=== PATIENT | male | born 1960 | race African-American/Black ===

== ENCOUNTER 2016-12-02 14:15 | Inpatient (IN) | payer SELFPAY ==
[~2016-12-02] VITALS: Ht 167.6 cm; Wt 99.8 kg
[~2016-12-02 14:15] MED LIST: AMLO5TAB4 PO; ASPI-482 PO; CLON0.1T PO; DOXY100C14 PO; LISI-334 PO; LISI1TAB5 PO; LOVA20TA2 PO; TIZA4TAB PO; TRIA1CAP PO
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
[2016-12-02] MEDS ORDERED: LISINOPRIL 10 MG TABLET PO ONE (15:30)
[2016-12-02] MEDS ORDERED: AMLODIPINE BESYLATE 5 MG TABLET PO ONE (15:30)
[2016-12-02] MEDS ORDERED: DIPHTH,PERTUSS(ACELL),TET TOX 0.5 ML DISP.SYRIN. VAX IM ONE (15:30)
[2016-12-02] MEDS ORDERED: HYDROCODONE/APAP 5/325MG TABLET. PO ONE (15:30)
[2016-12-02] MEDS ORDERED: CEFAZOLIN 2GM PREMIX 50 ML IV ONE (15:45)
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
[2016-12-02] MEDS: FENTANYL PF 100 MCG/2 ML VIAL. IV PRN ×2 (16:28→22:53)
[2016-12-02] MEDS ORDERED: OXYCODONE/APAP 5/325 TABLET. PO PRN (16:30)
[2016-12-02] MEDS ORDERED: ACETAMINOPHEN 500 MG TABLET PO PRN (16:30)
[2016-12-02] MEDS ORDERED: hydrALAZINE 20 MG/ML VIAL. IVP PRN (16:30)
[2016-12-02] MEDS ORDERED: ONDANSETRON PF 4 MG/2 ML VIAL. IV PRN (16:30)
--- NOTE | 2016-12-02 16:31 | EKG ---
[facility] [address] [place] [id number] Test Date: 2016-12-02 Test Time: 16:29:39 Pat Name: MARIA E HERNANDEZ Department: Room: Gender: Male Progress Developer: : 1960 Requested By: JOCELYNN MAYO Order Number: [id number] Reading MD: Carlos Alberto Vick Measurements Intervals [place] Rate: 66 P: 41 MA: 156 QRS: -12 QRSD: 84 T: -2 QT: 360 QTc: 379 Interpretive Statements SINUS RHYTHM LEFTWARD AXIS T ABNORMALITY IN INFERIOR LEADS RI6.01 Unconfirmed report Compared to ECG 09/05/2015 14:32:28 Left-axis deviation now present T-wave abnormality now present Electronically Signed On 12-19-2016 9:46:23 POLICE SURGEON by Carlos Alberto Vick
[2016-12-02 16:34] LABS: BASO % 0 % (0-3); EOS % 0 % (0-3); HEMATOCRIT 41.6 % (39.0-53.0); HEMOGLOBIN 13.6 g/dL (13.0-17.5); LYMPH # 0.7 x10^3/uL (1.0-4.8); LYMPH % 9 % (24-48); MEAN CORPUSCULAR HEMOGLOBIN 26 pg (25-35); MEAN CORPUSCULAR HGB CONC 33 g/dL (31-37); MEAN CORPUSCULAR VOLUME 80 fL (79-100); MONO % 6 % (0-9); NEUT % 85 % (31-73); PLATELET COUNT 238 x10^3/uL (140-400); RED BLOOD COUNT 5.21 x10^6/uL (4.30-5.70); RED CELL DISTRIBUTION WIDTH 15.3 % (11.5-14.5); WHITE BLOOD COUNT 7.6 x10^3/uL (4.0-11.0)
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
[2016-12-02 17:06] LABS: CALCIUM 9.4 mg/dL (8.5-10.1); CREATININE 1.3 mg/dL (0.7-1.3); GFR 69.3; POTASSIUM 3.6 mmol/L (3.5-5.1)
[2016-12-02 17:08] LABS: ALBUMIN 3.4 g/dL (3.4-5.0); ALBUMIN/GLOBULIN RATIO 0.8 (1.0-1.7); TOTAL BILIRUBIN 0.2 mg/dL (0.2-1.0); TOTAL PROTEIN 7.5 g/dL (6.4-8.2)
--- NOTE | 2016-12-02 17:36 | ACF ---
Admission Forms Criteria MUSCULOSKELETAL DISEASE GRG Clinical Indications for Admission to Inpatient Care (Place 'X' for any and all applicable criteria): Hospital admission is needed for appropriate care of the patient because of ANY ONE of the following: [X]I. Fracture, dislocation, or other musculoskeletal injury requiring inpatient care(medical) as indicated by ANY ONE of the following(4)(5)(6)(7) [ ]a) Vertebral fracture requiring observation for instability or neurologic compromise (8) [ ]b) Compartment syndrome (proven or cannot be ruled out during observation level of care) (9) [ ]c) Limb-threatening injury [X]d) Major injury requiring inpatient stabilization such as traction initiation or external fixation before internal fixation or closure of complex or open fracture [ ]e) Major injury requiring inpatient treatment after emergency or observation level care (as appropriate) [ ]f) Severe pain requiring acute inpatient management [ ]II. Newly diagnosed or suspected bone, joint, or orthopedic device infection (e.g., osteomyelitis, septic arthritis) needing ANY ONE of the following(1)(2)(3) [ ]a) IV antibiotics that cannot be initiated in other than inpatient setting (e.g., patient too unstable or home infusion not available) [ ]b) Device removal or replacement [ ]c) Bone or soft tissue debridement [ ]d) Joint drainage (drain placement or repetitive aspirations) [ ]III. Severe rheumatologic disease (e.g., systemic lupus erythematosus, rheumatoid arthritis) with complications or comorbidities (Also use Optimal Recovery Care Criteria or General Recovery Criteria as appropriate on the basis of predominant condition), including ANY ONE of the following(10 )(11)(12)(13) [ ]a) Severe infection (e.g., FLOORWORKER infection, sepsis) (14) [ ]b) Respiratory complications, including ANY ONE of the following: [ ]i) Pleural effusion with respiratory compromise [ ]ii) Pulmonary hypertension with congestive failure [ ]iii) Respiratory failure [ ]iv) Pulmonary hemorrhage (15) [ ]c) Hematologic disease, including ANY ONE of the following: [ ]i) Coagulopathy with bleeding [ ]ii) Thrombosis with hypercoagulable state [ ]iii) Thrombotic thrombocytopenic purpura [ ]d) Cerebritis with seizures, psychosis, or other severe abnormalities [ ]e) Vertebral destruction with monitoring needed for cervical myelopathy& possible respiratory compromise [ ]f) Exacerbation that requires inpatient treatment (e.g., intravenous immunosuppression) (16) [ ]g) Acute renal failure [ ]IV. Severe vasculitis with complications or comorbidities (Also use Optimal Recovery Care Criteria or General Recovery Criteria as appropriate on the basis of predominant condition), including ANY ONE of the following(11)(12)(17)(18)(19)(20) [ ]a) FLOORWORKER vasculitis with seizures, psychosis, or other severe abnormalities (22) [ ]b) Renal failure (16) [ ]c) Pulmonary hemorrhage (15) [ ]d) Cerebral infarction [ ]e) Gastrointestinal ischemia [ ]f) Gangrene or threatened amputation [ ]g) Exacerbation that requires inpatient treatment (e.g., intravenous immunosuppression) (19)(21) [ ]V. Severe myopathy as indicated by ANY ONE of the following (28)(29) [ ]a) New onset of airway compromise or inability to swallow [ ]b) Respiratory deterioration with observation needed for impending respiratory failure [ ]c) Exacerbation that requires inpatient treatment (e.g., intravenous immunosuppression) [ ]. Severe gout (crystal arthropathy) as indicated by ANY ONE of the following (23)(24) [ ]a) Severe pain requiring acute inpatient management [ ]b) Exacerbation that requires inpatient treatment (e.g., intravenous treatment) [ ]VII.Rhabdomyolysis and ANY ONE of the following (25)(26)(27) [ ]a) Acute renal failure [ ]b) Need for intravenous hydration after emergency or observation level care (as appropriate) [ ]c) Inability to maintain oral hydration [ ]d) Change in mental status [ ]e) Electrolyte abnormality that remains after emergency or observation level care (as appropriate) [ ]VIII Post amputation complication, as indicated by ANY ONE of the following [ ]a) Infection [ ]b) Dehiscence [ ]c) Myodesis failure [ ]IX. Severe pain requiring acute inpatient management as indicated by ALL of the following (30)(31)(32) [ ]a) Continuous or frequent (e.g., every 2 to 4 hrs) parenteral analgesics required [A] [ ]b) Rapid improvement expected from treatment or acute intervention ( e.g., surgery, anesthesia procedure[B] [ ]X. Musculoskeletal Disease and ALL of the following: [ ]a) Symptom or finding for which emergency and observation care have failed or are not considered appropriate (Use General Criteria: Observation Care as appropriate) [ ]b) Presence of ANY ONE of the following [ ]i) A General Admission Criteria [ ]ii) A Pediatric General Admission Criteria The original [facility] content created by [facility] has been revised. The portions of the content which have been revised are identified through the use of italic text or in bold, and [facility] has neither reviewed nor approved the modified material. All other unmodified content is copyright [facility]. Please see references footnoted in the original [facility] edition 2016 Admission Criteria Met?: Yes CLAUS DAO Dec 02, 2016 17:36
[2016-12-02] MEDS: OXYCODONE/APAP 10/325 TABLET. PO PRN (17:51)
[2016-12-02] MEDS: MORPHINE SULFATE 4 MG/ML DISP.SYRIN. IV PRN ×2 (18:30→21:04)
[2016-12-02 19:00] VITALS: BP 183/102
[2016-12-02 19:01] LABS: BILIRUBIN,URINE NEGATIVE (NEG); GLUCOSE,URINE 100 mg/dL (NEG); NITRITE,URINE NEGATIVE (NEG); PH,URINE 7.5; PROTEIN,URINE NEGATIVE (NEG-TRACE); UROBILINOGEN,URINE 0.2 mg/dL (0.2 mg/dL)
[2016-12-02] MEDS: LABETALOL 20 MG/4 ML DISP.SYRIN. IVP PRN ×2 (19:28→22:57)
[2016-12-02 19:39] LABS: BACTERIA,URINE 0 /HPF (0-FEW); RBC,URINE OCC /HPF (0-2); SQUAMOUS EPITHELIAL CELL,UR FEW /LPF; WBC,URINE 0 /HPF (0-4)
[2016-12-02] MEDS: ATORVASTATIN CALCIUM 10 MG TABLET. PO SCH (20:57)
[2016-12-02] MEDS: CLONIDINE HCL 0.1 MG TABLET PO SCH (20:57)
[2016-12-02 23:00] VITALS: BP 185/91
[2016-12-03] VITALS (13 sets, daily range): BP systolic 126–196; BP diastolic 41–111
[2016-12-03] MEDS: OXYCODONE/APAP 10/325 TABLET. PO PRN (00:07)
[2016-12-03] MEDS: MORPHINE SULFATE 4 MG/ML DISP.SYRIN. IV PRN ×5 (00:07→09:52)
[2016-12-03] MEDS: FENTANYL PF 100 MCG/2 ML VIAL. IV PRN ×2 (04:14→07:11)
[2016-12-03] MEDS: CLONIDINE HCL 0.1 MG TABLET PO SCH ×2 (08:45→21:29)
[2016-12-03] MEDS: TRIAMTERENE/HCTZ 37.5/25MG TABLET. PO SCH (08:45)
[2016-12-03] MEDS: AMLODIPINE BESYLATE 5 MG TABLET PO SCH (08:46)
[2016-12-03] MEDS: NICOTINE 21MG PATCH. TD SCH (08:46)
[2016-12-03] MEDS: LISINOPRIL 20 MG TABLET PO SCH (08:47)
[2016-12-03] MEDS ORDERED: FLU VACC QUAD 2016-17 (36MOS+)/PF 0.5 ML SYRINGE. VAX IM ONE (11:00)
[2016-12-03] MEDS ORDERED: INFLUENZA VAX SCREEN BY RX. MC PRN (11:15)
[2016-12-03] MEDS ORDERED: FENTANYL PF 100 MCG/2 ML VIAL. ONE (12:39)
[2016-12-03] MEDS ORDERED: DEXAMETHASONE SOD PHOS 20 MG/5 ML VIAL. ONE (12:39)
[2016-12-03] MEDS ORDERED: ONDANSETRON PF 4 MG/2 ML VIAL. ONE (12:39)
[2016-12-03] MEDS ORDERED: PROPOFOL 20 ML IV ONE (12:39)
[2016-12-03] MEDS ORDERED: MIDAZOLAM HCL 2 MG/2 ML VIAL. ONE (12:39)
[2016-12-03] MEDS ORDERED: FAMOTIDINE 20 MG/2 ML VIAL ONE ×2 (12:39→13:52)
[2016-12-03] MEDS ORDERED: BUPIVACAINE-EPI 0.25%-1:200000 50 ML VIAL. ONE (12:40)
[2016-12-03] MEDS ORDERED: CEFAZOLIN 2GM PREMIX 50 ML IV ONE (12:53)
[2016-12-03] MEDS ORDERED: CEFAZOLIN 2GM PREMIX 50 ML IV SCH (13:00)
[2016-12-03] MEDS ORDERED: IV RINGERS,LACTATED 1000ML 1,000 ML IV SCH ×2 (13:00→14:12)
[2016-12-03] MEDS ORDERED: ROCURONIUM 50 MG/5 ML VIAL. ONE (13:17)
[2016-12-03] MEDS ORDERED: EPHEDRINE PF IN SALINE 50 MG/5 ML DISP.SYRIN. IV ONE (13:37)
[2016-12-03] MEDS ORDERED: GLYCOPYRROLATE 1 MG/5 ML VIAL. ONE (13:52)
[2016-12-03] MEDS ORDERED: NEOSTIGMINE METHYLSULFATE 5 MG/5 ML SYRINGE. ONE (13:52)
[2016-12-03] MEDS ORDERED: HYDROMORPHONE 2 MG/ML VIAL. IV PRN (14:15)
[2016-12-03] MEDS ORDERED: FENTANYL PF 100 MCG/2 ML VIAL. IV PRN ×4 (14:15→14:45)
[2016-12-03] MEDS ORDERED: MORPHINE SULFATE 4 MG/ML DISP.SYRIN. IV PRN ×2 (14:15→14:45)
[2016-12-03] MEDS ORDERED: MIDAZOLAM HCL 2 MG/2 ML VIAL. IV PRN ×2 (14:15)
[2016-12-03] MEDS ORDERED: PROCHLORPERAZINE 10 MG/2 ML VIAL. IV PRN (14:15)
[2016-12-03] MEDS ORDERED: DIPHENHYDRAMINE 50 MG/ML VIAL IV PRN (14:15)
[2016-12-03] MEDS ORDERED: LIDOCAINE 1% 1 ML SYRINGE. ID PRN (14:15)
[2016-12-03] MEDS ORDERED: MEPERIDINE PF 25 MG/ML VIAL. IV PRN (14:15)
[2016-12-03] MEDS ORDERED: SEVOFLURANE 31 TO 60 MINUTES. IH ONE (14:17)
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
[2016-12-03] MEDS ORDERED: DEXTROSE 50% 25 GM / 50ML DISP.SYRIN. IV PRN (14:45)
[2016-12-03] MEDS ORDERED: HYDROCODONE/APAP 7.5/325MG TABLET. PO PRN (14:45)
[2016-12-03] MEDS ORDERED: OXYCODONE/APAP 5/325 TABLET. PO PRN (14:45)
[2016-12-03] MEDS ORDERED: ONDANSETRON PF 4 MG/2 ML VIAL. IV PRN (14:45)
[2016-12-03] MEDS ORDERED: MORPHINE SULFATE 2 MG/ML DISP.SYRIN. IV PRN (14:45)
[2016-12-03] MEDS ORDERED: OXYCODONE IR 5 MG TABLET. PO PRN (14:45)
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
[2016-12-03] MEDS: IV 1/2 NORMAL SALINE 1,000 ML IV SCH (16:18)
[2016-12-03] MEDS: CHOLECALCIFEROL (VITAMIN D3) 1,000 UNIT TABLET PO SCH (16:18)
[2016-12-03] MEDS: SENNOSIDES/DOCUSATE 8.6/50MG TABLET. PO SCH (16:18)
[2016-12-03] MEDS: CEFAZOLIN 2GM PREMIX 50 ML IV SCH (18:25)
[2016-12-03] MEDS: KETOROLAC TROMETHAMINE 30 MG/ML SYRINGE. IV SCH ×2 (18:26→23:57)
[2016-12-03] MEDS: ATORVASTATIN CALCIUM 10 MG TABLET. PO SCH (21:29)
[2016-12-04] MEDS: CEFAZOLIN 2GM PREMIX 50 ML IV SCH ×2 (01:26→06:53)
[2016-12-04] MEDS: OXYCODONE/APAP 10/325 TABLET. PO PRN (01:31)
[2016-12-04 03:53] VITALS: BP 167/91
[2016-12-04] MEDS: IV 1/2 NORMAL SALINE 1,000 ML IV SCH (04:03)
[2016-12-04] MEDS: KETOROLAC TROMETHAMINE 30 MG/ML SYRINGE. IV SCH (05:27)
[2016-12-04] MEDS ORDERED: MAGNESIUM HYDROXIDE 2,400 MG/30 ML ORAL.SUSP. PO PRN (06:00)
[2016-12-04 06:47] LABS: BASO % 0 % (0-3); EOS % 0 % (0-3); HEMATOCRIT 36.2 % (39.0-53.0); LYMPH % 15 % (24-48); MEAN CORPUSCULAR HEMOGLOBIN 26 pg (25-35); MEAN CORPUSCULAR HGB CONC 33 g/dL (31-37); MEAN CORPUSCULAR VOLUME 79 fL (79-100); MONO % 10 % (0-9); NEUT % 75 % (31-73); PLATELET COUNT 241 x10^3/uL (140-400); RED BLOOD COUNT 4.57 x10^6/uL (4.30-5.70); RED CELL DISTRIBUTION WIDTH 15.1 % (11.5-14.5); WHITE BLOOD COUNT 7.2 x10^3/uL (4.0-11.0)
[2016-12-04] MEDS: HYDROCODONE/APAP 7.5/325MG TABLET. PO PRN ×4 (06:58→21:20)
[2016-12-04 07:00] VITALS: BP 138/82
[2016-12-04 07:05] LABS: CREATININE 1.3 mg/dL (0.7-1.3); GFR 69.3; POTASSIUM 3.6 mmol/L (3.5-5.1)
[2016-12-04] MEDS: NICOTINE 21MG PATCH. TD SCH (08:34)
[2016-12-04] MEDS: TRIAMTERENE/HCTZ 37.5/25MG TABLET. PO SCH (08:34)
[2016-12-04] MEDS: LISINOPRIL 20 MG TABLET PO SCH (08:35)
[2016-12-04] MEDS: SENNOSIDES/DOCUSATE 8.6/50MG TABLET. PO SCH (08:35)
[2016-12-04] MEDS: ASPIRIN 325 MG TABLET PO SCH (08:35)
[2016-12-04] MEDS: CLONIDINE HCL 0.1 MG TABLET PO SCH ×2 (08:36→20:05)
[2016-12-04] MEDS: AMLODIPINE BESYLATE 5 MG TABLET PO SCH (08:36)
[2016-12-04] MEDS: MULTIVITAMIN with MINERAL TABLET. PO SCH (08:41)
[2016-12-04] MEDS: CHOLECALCIFEROL (VITAMIN D3) 1,000 UNIT TABLET PO SCH (08:41)
[2016-12-04] MEDS ORDERED: INFLUENZA VAX SCREEN BY RX. MC ONE (09:00)
[2016-12-04 11:00] VITALS: BP 140/67
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
[2016-12-04 15:00] VITALS: BP 153/73
[2016-12-04] MEDS ORDERED: BISACODYL 10 MG SUPP.RECT PR PRN (16:00)
[2016-12-04] MEDS: POLYETHYLENE GLYCOL 3350 17 GM PACKET. PO PRN (17:16)
[2016-12-04 19:20] VITALS: BP 129/73
[2016-12-04] MEDS: ATORVASTATIN CALCIUM 10 MG TABLET. PO SCH (20:05)
[2016-12-04] MEDS: DIPHENHYDRAMINE 50 MG/ML VIAL IVP PRN (21:20)
[2016-12-04 23:16] VITALS: BP 124/82
[2016-12-05] MEDS: HYDROCODONE/APAP 7.5/325MG TABLET. PO PRN ×2 (02:35→07:04)
[2016-12-05 03:31] VITALS: BP 139/64
[2016-12-05 06:47] LABS: BASO % 0 % (0-3); EOS % 1 % (0-3); HEMATOCRIT 38.8 % (39.0-53.0); HEMOGLOBIN 12.7 g/dL (13.0-17.5); LYMPH % 25 % (24-48); MEAN CORPUSCULAR HEMOGLOBIN 26 pg (25-35); MEAN CORPUSCULAR HGB CONC 33 g/dL (31-37); MEAN CORPUSCULAR VOLUME 80 fL (79-100); MONO % 10 % (0-9); NEUT % 64 % (31-73); PLATELET COUNT 314 x10^3/uL (140-400); RED BLOOD COUNT 4.85 x10^6/uL (4.30-5.70); WHITE BLOOD COUNT 8.2 x10^3/uL (4.0-11.0)
[2016-12-05 06:56] LABS: CALCIUM 9.5 mg/dL (8.5-10.1); CREATININE 1.3 mg/dL (0.7-1.3); GFR 69.3; POTASSIUM 3.3 mmol/L (3.5-5.1)
[2016-12-05 07:00] VITALS: BP 159/81
[2016-12-05] MEDS: SENNOSIDES/DOCUSATE 8.6/50MG TABLET. PO SCH (08:53)
[2016-12-05] MEDS: AMLODIPINE BESYLATE 5 MG TABLET PO SCH (08:53)
[2016-12-05] MEDS: ASPIRIN 325 MG TABLET PO SCH (08:54)
[2016-12-05] MEDS: LISINOPRIL 20 MG TABLET PO SCH (08:54)
[2016-12-05] MEDS: CLONIDINE HCL 0.1 MG TABLET PO SCH (08:54)
[2016-12-05] MEDS: MULTIVITAMIN with MINERAL TABLET. PO SCH (08:54)
[2016-12-05] MEDS: TRIAMTERENE/HCTZ 37.5/25MG TABLET. PO SCH (08:54)
[2016-12-05] MEDS: CHOLECALCIFEROL (VITAMIN D3) 1,000 UNIT TABLET PO SCH (08:58)
[2016-12-05] MEDS: NICOTINE 21MG PATCH. TD SCH (08:58)
[2016-12-05] MEDS: DIPHENHYDRAMINE 50 MG/ML VIAL IVP PRN (08:59)
[2016-12-05] MEDS: POLYETHYLENE GLYCOL 3350 17 GM PACKET. PO PRN (08:59)
[2016-12-05 11:00] VITALS: BP 131/72
[2016-12-05] MEDS ORDERED: OXYCODONE/APAP 5/325 TABLET. PO PRN ×2 (11:15)
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
[2016-12-05] MEDS ORDERED: POTASSIUM CHLORIDE 20 MEQ TABLET.ER. PO ONE (11:30)
[2016-12-05] MEDS ORDERED: AMLO5TAB4 PO (11:35)
[2016-12-05] MEDS ORDERED: LISI-334 PO (11:35)
[2016-12-05] MEDS ORDERED: LOVA20TA2 PO (11:35)
[2016-12-05] MEDS ORDERED: TRIA1CAP PO (11:35)
[2016-12-05] MEDS ORDERED: CLON0.1T PO (11:35)
[2016-12-05] MEDS ORDERED: ASPI325T4 PO (11:36)
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
== END 2016-12-05 12:30 | disposition home or self-care (01) | DRG 504 ==
LOC: ER 14:15 → ED HOLD 15:43 → 4 NORTH 18:50
PROVIDERS: ADMIT Internal Medicine; ATTEND Internal Medicine
PROC: 0QBN0ZZ Excision of Right Metatarsal, Open Approach (ICD-10-PCS; 2016-12-03)
PROC: 0QSN04Z Reposition Right Metatarsal with Internal Fixation Device, Open Approach (ICD-10-PCS; 2016-12-03)
PROC: 0SSM04Z Reposition Right Metatarsal-Phalangeal Joint with Internal Fixation Device, Open Approach (ICD-10-PCS; 2016-12-03)
PROC: 0QSN35Z Reposition Right Metatarsal with External Fixation Device, Percutaneous Approach (ICD-10-PCS; 2016-12-03)
PROC: 0SS Lower Joints, Reposition (ICD-10-PCS; principal; 2016-12-03 13:15)
DX: S92.331B Displaced fracture of third metatarsal bone, right foot, initial encounter for open fracture (principal); I16.1 Hypertensive emergency; S93.129A Dislocation of metatarsophalangeal joint of unspecified toe(s), initial encounter; S92.341B Displaced fracture of fourth metatarsal bone, right foot, initial encounter for open fracture; F17.200 Nicotine dependence, unspecified, uncomplicated; I10 Essential (primary) hypertension; Z82.49 Family history of ischemic heart disease and other diseases of the circulatory system; Z91.19 Patient's noncompliance with other medical treatment and regimen; V29.9XXA Motorcycle rider (driver) (passenger) injured in unspecified traffic accident, initial encounter; Y93.I9 Activity, other involving external motion; Y92.89 Other specified places as the place of occurrence of the external cause; Y99.8 Other external cause status
CPT/HCPCS: 29515; 36415; 73590; 73630; 76000; 80048; 80053; 81001; 85027; 90471; 90715; 93005; 96365; 96375; J0360; J0690; J1100; J1200; J1885; J2250; J2270; J2405; J2704; J2710; J3010; J3490; J7120; S0028; 97116; 97530; 99285-25

== ENCOUNTER 2016-12-06 12:42 | Emergency (ER) | payer SELFPAY ==
[~2016-12-06] VITALS: Ht 167.6 cm; Wt 102.1 kg
[~2016-12-06 12:42] MED LIST changes: +ASPI325T4 PO
[2016-12-06 13:08] VITALS: BP 145/109
[2016-12-06] MEDS ORDERED: HYDROCODONE/APAP 5/325MG TABLET. PO ONE (14:30)
--- NOTE | 2016-12-06 14:53 | PHYS DOC ---
Past Medical History Past Medical History: High Cholesterol, Hypertension Past Surgical History: Other Additional Past Surgical Histo: R foot fx Alcohol Use: None Drug Use: None Adult General Chief Complaint Chief Complaint: POST-OP PROBLEM HPI HPI Patient is a 56 year old male who presents with for evaluation of leaking through his operative dressing on his right foot. He had open reduction of foot fracture with Dr. Diallo. He has been intermittently putting weight on his right foot. He has since had blood soaking his dressing. He has appropriate post op pain that is unchanged. He denies new injury. He denies fever or chills. Review of Systems Review of Systems Constitutional: Denies fever or chills [] Eyes: Denies change in visual acuity, redness, or eye pain [] HENT: Denies nasal congestion or sore throat [] Respiratory: Denies cough or shortness of breath [] Cardiovascular: No additional information not addressed in HPI [] GI: Denies abdominal pain, nausea, vomiting, bloody stools or diarrhea [] : Denies dysuria or hematuria [] Musculoskeletal: Denies back pain [] Integument: Denies rash or skin lesions [] Neurologic: Denies headache, focal weakness or sensory changes [] Endocrine: Denies polyuria or polydipsia [] Current Medications Current Medications Current Medications Medications (Trade) Dose Ordered Sig/Winston Start Time Stop Time Status Last Admin Dose Admin Acetaminophen/ Hydrocodone Bitart (Lortab 5/325) 2 tab 1X ONCE 12/06/16 14:30 12/06/16 14:34 DC 12/06/16 14:38 2 TAB Allergies Allergies Allergies Coded Allergies Type Severity Reaction Last Updated Verified No Known Drug Allergies 09/05/15 No Physical Exam Physical Exam Constitutional: Well developed, well nourished, no acute distress, non-toxic appearance. [] HENT: Normocephalic, atraumatic, bilateral external ears normal, oropharynx moist, nose normal. [] Eyes: PERRLA, EOMI. [] Neck: Normal range of motion, supple. [] Cardiovascular:Heart rate regular rhythm [] Lungs & Thorax: Bilateral breath sounds clear to auscultation [] Abdomen: Bowel sounds normal, soft, no tenderness. [] Skin: Warm, dry, no erythema, no rash. [] Back: Normal ROM. [] Extremities: RLE with surgical pins present to toes, ecchymosis to foot and ankle with fracture blisters around dorsum operative site, intact sutures to dorsum of foot with no bleeding or purulent discharge, small nonbleeding wound to plantar foot with no discharge, appropriate tenderness to foot, brisk cap refill to toes, can wiggle toes, sensation intact to light touch grossly Neurologic: Alert and oriented X 3, normal motor function, normal sensory function, no focal deficits noted. [] Psychologic: Affect normal, judgement normal, mood normal. [] Current Patient Data Vital Signs Vital Signs Date Time Temp Pulse Resp B/P Pulse Ox O2 Delivery O2 Flow Rate FiO2 12/06/16 14:38 Room Air 12/06/16 13:08 97.6 79 16 145/109 97 97.6 Course & Med Decision Making Course & Med Decision Making Dressing taking down with no active bleeding from operative site. No obvious purulent drainage or signs of infection. Dressing and splint was replaced with appropriate hardening of posterior slab. Case was discussed with Dr. Diallo, orthopedics, who recommends calling clinic for follow-up. Discussed nonweightbearing status. Return precautions given. Patient understands and agrees with plan. Dragon Disclaimer Dragon Disclaimer This electronic medical record was generated, in whole or in part, using a voice recognition dictation system. Departure Departure Impression: Primary Impression: Bleeding from wound Disposition: HOME, SELF-CARE Condition: STABLE Referrals: NO PCP (PCP) Patient Instructions: ORIF, Open Reduction, Internal Fixation, Generic Additional Instructions: Follow-up with orthopedics clinic. Continue to not walk on your foot. Return for any concerns. Bunny CONDE MD Dec 06, 2016 14:53
== END 2016-12-06 15:10 | disposition home or self-care (01) ==
LOC: ER 12:42
DX: L76.22 Postprocedural hemorrhage of skin and subcutaneous tissue following other procedure (principal); E78.00 Pure hypercholesterolemia, unspecified; I10 Essential (primary) hypertension; Z98.890 Other specified postprocedural states
CPT/HCPCS: 29515; 99283-25

== ENCOUNTER 2017-01-04 17:02 | Inpatient (IN) | payer SELFPAY ==
[~2017-01-04] VITALS: Ht 172.7 cm; Wt 80.8 kg
[2017-01-04] MEDS ORDERED: ONDANSETRON PF 4 MG/2 ML VIAL. IV ONE (17:45)
[2017-01-04] MEDS ORDERED: MORPHINE SULFATE 4 MG/ML DISP.SYRIN. IV/SQ PRN (17:45)
[2017-01-04 17:48] LABS: BASO # 0.1 x10^3/uL (0.0-0.2); BASO % 1 % (0-3); EOS % 2 % (0-3); HEMATOCRIT 38.4 % (39.0-53.0); HEMOGLOBIN 12.8 g/dL (13.0-17.5); LYMPH # 2.1 x10^3/uL (1.0-4.8); LYMPH % 20 % (24-48); MEAN CORPUSCULAR HEMOGLOBIN 27 pg (25-35); MEAN CORPUSCULAR HGB CONC 33 g/dL (31-37); MEAN CORPUSCULAR VOLUME 79 fL (79-100); MONO % 9 % (0-9); NEUT % 68 % (31-73); PLATELET COUNT 411 x10^3/uL (140-400); RED BLOOD COUNT 4.85 x10^6/uL (4.30-5.70); RED CELL DISTRIBUTION WIDTH 15.2 % (11.5-14.5); WHITE BLOOD COUNT 10.4 x10^3/uL (4.0-11.0)
[2017-01-04 17:56] LABS: CALCIUM 9.8 mg/dL (8.5-10.1); CREATININE 1.5 mg/dL (0.7-1.3); GFR 58.8; POTASSIUM 3.4 mmol/L (3.5-5.1)
[2017-01-04] MEDS ORDERED: CEFAZOLIN 2GM PREMIX 50 ML IV ONE (18:30)
[2017-01-04] MEDS ORDERED: ACETAMINOPHEN 325 MG TABLET. PO PRN (19:45)
[2017-01-04] MEDS ORDERED: ONDANSETRON PF 4 MG/2 ML VIAL. IV PRN (19:45)
[2017-01-04 20:15] VITALS: BP 164/102
--- NOTE | 2017-01-04 20:15 | ED.ADGEN ---
Past Medical History Past Medical History: High Cholesterol, Hypertension Past Surgical History: Other Additional Past Surgical Histo: R foot fx Alcohol Use: None Drug Use: None Adult General Chief Complaint Chief Complaint: FOOT INJURY PAIN HPI HPI Patient is a 56 year old man, history of hypertension, hypercholesterolemia, status post open reduction internal fixation of a foot fracture that occurred December 02, with metal fixation in place, who presents to the emergency department with complaint of pain, swelling and drainage from the surgical site that began 2 days ago. Patient states that he began noting increasing swelling yesterday and today especially, denies any new injuries, states that he is expressing increasing pain radiating up from his toes throughout his foot into his leg. Denies any fevers or chills, any nausea or vomiting, any weakness numbness or tingling. No chest pain shortness of breath or other complaints. Review of Systems Review of Systems Constitutional: Denies fever or chills. [] Eyes: Denies change in visual acuity. [] HENT: Denies nasal congestion or sore throat. [] Respiratory: Denies cough or shortness of breath. [] Cardiovascular: Denies chest pain or edema. [] GI: Denies abdominal pain, nausea, vomiting, bloody stools or diarrhea. [] : Denies dysuria. [] Musculoskeletal: Denies back pain, complaining of pain, swelling and drainage from his right foot, at incision site. Integument: Denies rash. [] Neurologic: Denies headache, focal weakness or sensory changes. [] Endocrine: Denies polyuria or polydipsia. [] Lymphatic: Denies swollen glands. [] Psychiatric: Denies depression or anxiety. [] Current Medications Current Medications Current Medications Medications (Trade) Dose Ordered Sig/Winston Start Time Stop Time Status Last Admin Dose Admin Morphine Sulfate 4 mg PRN Q15MIN PRN 01/04/17 17:45 01/05/17 17:44 01/04/17 17:46 4 MG Ondansetron HCl (Zofran) 4 mg 1X ONCE 01/04/17 17:45 01/04/17 17:46 DC 01/04/17 17:46 4 MG Allergies Allergies Allergies Coded Allergies Type Severity Reaction Last Updated Verified No Known Drug Allergies 09/05/15 No Physical Exam Physical Exam Constitutional: Well developed, well nourished, no acute distress, non-toxic appearance. [] HENT: Normocephalic, atraumatic, bilateral external ears normal, oropharynx moist, no oral exudates, nose normal. [] Eyes: PERRLA, EOMI, conjunctiva normal, no discharge. [] Neck: Normal range of motion, no tenderness, supple, no stridor. [] Cardiovascular:Heart rate regular rhythm, no murmur, S1, S2, rubs or gallops. [] Lungs & Thorax: Bilateral breath sounds clear to auscultation [, no wheezing, rhonchi, rales. No chest wall tenderness or crepitus.] Abdomen: Bowel sounds normal, soft, no tenderness, no masses, no pulsatile masses. [] Skin: Warm, dry, no erythema, no rash. [] Back: No tenderness, no CVA tenderness. [] Extremities: Patient with metal fixators extending from the third fourth and fifth toes of his right foot, evidence of scabbing, with some mild yellow red drainage from the dorsal aspect, patient with swelling from the toes to the mid foot, which she states is new, with mild erythema and warmth noted. Pulses are intact and equal bilaterally. Neurologic: Alert and oriented X 3, normal motor function, normal sensory function, no focal deficits noted. [] Psychologic: Affect normal, judgement normal, mood normal. [] Current Patient Data Vital Signs Vital Signs Date Time Temp Pulse Resp B/P Pulse Ox O2 Delivery O2 Flow Rate FiO2 01/04/17 17:46 16 97 Room Air 01/04/17 17:43 80 182/99 01/04/17 17:14 97.3 97.3 Lab Values Laboratory Tests Test 01/04/17 17:30 White Blood Count 10.4x10^3/uL (4.0-11.0) Red Blood Count 4.85x10^6/uL (4.30-5.70) Hemoglobin 12.8g/dL (13.0-17.5) L Hematocrit 38.4% (39.0-53.0) L Mean Corpuscular Volume 79fL (79-100) Mean Corpuscular Hemoglobin 27pg (25-35) Mean Corpuscular Hemoglobin Concent 33g/dL (31-37) Red Cell Distribution Width 15.2% (11.5-14.5) H Platelet Count 411x10^3/uL (140-400) H Neutrophils (%) (Auto) 68% (31-73) Lymphocytes (%) (Auto) 20% (24-48) L Monocytes (%) (Auto) 9% (0-9) Eosinophils (%) (Auto) 2% (0-3) Basophils (%) (Auto) 1% (0-3) Neutrophils # (Auto) 7.1x10^3uL (1.8-7.7) Lymphocytes # (Auto) 2.1x10^3/uL (1.0-4.8) Monocytes # (Auto) 1.0x10^3/uL (0.0-1.1) Eosinophils # (Auto) 0.2x10^3/uL (0.0-0.7) Basophils # (Auto) 0.1x10^3/uL (0.0-0.2) Sodium Level 138mmol/L (136-145) Potassium Level 3.4mmol/L (3.5-5.1) L Chloride Level 98mmol/L (98-107) Carbon Dioxide Level 28mmol/L (21-32) Anion Gap 12 (6-14) Blood Urea Nitrogen 9mg/dL (8-26) Creatinine 1.5mg/dL (0.7-1.3) H Estimated GFR (Cockcroft-Gault) 58.8 Glucose Level 113mg/dL (70-99) H Calcium Level 9.8mg/dL (8.5-10.1) Laboratory Tests 01/04/17 17:30 Laboratory Tests 01/04/17 17:30 EKG EKG ECG: Rhythm strip: Heart rate 80 bpm, sinus rhythm, no ectopy. As interpreted by me. [] Radiology/Procedures Radiology/Procedures Foot x-ray: Three-view: Patient with metal fixators in place, no acute fracture , subluxation noted, soft tissue swelling noted. No fluid collection or gas. As interpreted by me. Course & Med Decision Making Course & Med Decision Making Pertinent Labs and Imaging studies reviewed. (See chart for details) Patient's examination concerning for infection of his postsurgical foot. Patient is afebrile, vital signs are within normal limits. X-ray obtained did not reveal any evidence of acutely concerning finds, laboratory studies also unremarkable. Patient received pain medication, findings as above discussed with Dr. Harris the patient's orthopedist, the patient be admitted to the hospital initiated on Ancef. Blood and wound cultures pending. Findings as above discussed with Dr. roberts of internal medicine, patient accepted to his service as a full admission to the medical surgical floor, orthopedics consultation, antibiotics, pain medication, supportive measures as stated. Bridge orders entered per discussion. Patient remained stable and comfortable in the ED, transferred to the floor without issue. Dragon Disclaimer Dragon Disclaimer This electronic medical record was generated, in whole or in part, using a voice recognition dictation system. Departure Impression: Primary Impression: Postoperative wound infection Disposition: ADMITTED INPATIENT Admitting Physician: Maya Roberts Condition: IMPROVED VIJAY FRAGOSO DO Jan 04, 2017 20:15
[2017-01-04] MEDS: MORPHINE SULFATE 4 MG/ML DISP.SYRIN. IV PRN ×2 (20:44→23:24)
[2017-01-04] MEDS ORDERED: POTASSIUM CHLORIDE 20 MEQ TABLET.ER. PO ONE (21:15)
--- NOTE | 2017-01-04 21:59 | PDOC1 ---
History and Physical Date of Admission Date of Admission DATE: 01/04/17 TIME: 21:55 History of Present Illness History of Present Illness Mr. Eagle, is a 56 year old man, admit from ER with worsening swelling, redness and new discharge from right dorsum of foot. He is status post open reduction internal fixation of a foot fracture that occurred December 02, with metal fixation in place to phalanges of right foot., He has been unable to sleep due to due pain, Pain was 8/10 better with meds Also swelling and drainage from the surgical site that began 2 days ago, and he thinks is better now. Past Medical History Past Medical History history of hypertension, hypercholesterolemia, Cardiovascular: HTN Pulmonary: No pertinent hx CENTRAL NERVOUS SYSTEM: Other GI: No pertinent hx Heme/Onc: No pertinent hx Hepatobiliary: No pertinent hx Psych: No pertinent hx Musculoskeletal: Other Infectious disease: No pertinent hx Renal/: No pertinent hx Endocrine: No pertinent hx Past Surgical History Past Surgical History: No pertinent history Family History Family History: Coronary Artery Disease Social History Smoke: No ALCOHOL: occassional Drugs: None Current Problem List Problem List Problems Medical Problems: (1) Postoperative wound infection Status: Acute Problems: Current Medications Current Medications Current Medications Morphine Sulfate 4 mg PRN Q15MIN PRN IV/SQ PAIN GREATER THAN 3/10 Last administered on 01/04/17 17:46; Start 01/04/17 at 17:45; Stop 01/05/17 at 17:44 Ondansetron HCl 4 mg 4 mg 1X ONCE IV Last administered on 01/04/17 17:46; Start 01/04/17 at 17:45; Stop 01/04/17 at 17:46; Status DC Cefazolin Sodium/ Dextrose (Ancef 2gm Premix) 50 ml @ 100 mls/hr 1X ONCE IV Last administered on 01/04/17 18:42; Start 01/04/17 at 18:30; Stop 01/04/17 at 18:59; Status DC Ondansetron HCl (Zofran) 4 mg PRN Q8HRS PRN IV NAUSEA/VOMITING; Start 01/04/17 at 19:45; Stop 01/05/17 at 19:44 Morphine Sulfate 4 mg PRN Q2HR PRN IV PAIN Last administered on 01/04/17 20:44 ; Start 01/04/17 at 19:45; Stop 01/05/17 at 19:44 Acetaminophen (Tylenol) 650 mg PRN Q4HRS PRN PO FEVER; Start 01/04/17 at 19:45 ; Stop 01/05/17 at 19:44 Potassium Chloride (Klor-Con) 40 meq 1X ONCE PO ; Start 01/04/17 at 21:15; Stop 01/04/17 at 21:16; Status DC Active Scripts Active Aspirin 325 Mg Tablet 325 Mg PO [id number] Clonidine Hcl 0.1 Mg Tablet 0.1 Mg PO BID 30 Days Lisinopril 20 Mg Tablet 1 Tab PO DAILY Norvasc (Amlodipine Besylate) 5 Mg Tablet 1 Tab PO DAILY Lovastatin 20 Mg Tablet 1 Tab PO DAILY Dyazide 37.5-25 Capsule (Triamterene/Hydrochlorothiazid) 1 Each Capsule 1 Cap PO DAILY Allergies Allergies: Coded Allergies: No Known Drug Allergies (Unverified , 09/05/15) ROS General: No: Appetite, Chills, Fatigue, Malaise, Night Sweats, Other PSYCHOLOGICAL ROS: No: Anxiety, Behavioral Disorder, Concentration difficultie , Decreased libido, Depression, Disorientation, Hallucinations, Hostility, Irritablity, Memory difficulties, Mood Swings, Obsessive thoughts, Other, Physical abuse, Sexual abuse, Sleep disturbances, Suicidal ideation Eyes: No Blurry vision, No Decreased vision, No Double vision, No Dry eyes, No Excessive tearing, No Eye Pain, No Itchy Eyes, No Loss of vision, No Other, No Photophobia, No Scotomata, No Uses contacts, No Uses glasses HEENT: YES: Heacaches, No: Epistaxis, Hearing change, Nasal congestion, Nasal discharge, Oral lesions, Other, Sinus pain, Sneezing, Snoring, Sore Throat, Tinnitus, Vertigo, Visual Changes, Vocal changes Respiratory: No: Cough, Hemoptysis, Orthopnea, Other, Pleuritic Pain, SOB with excertion, Shortness of breath, Sputum Changes, Stridor, Tachypnea, Wheezing Cardiovascular: No Chest Pain, No Edema, No Lt Headedness, No Orthopnea, No Other, No Palpitations, No Paroxysmal Noc. Dyspnea Gastrointestinal: No Abdominal Pain, No Constipation, No Diarrhea, No Hematochezia, No Melena, No Nausea, No Other, No Vomiting Genitourinary: No , No , No , No , No , No , No , No Discharge, No Dysuria, No Flank Pain, No Frequency, No Hematuria, No Incontinence, No Other, No Pain, No Retention, No Urgency Musculoskeletal: Yes Gait Disturbance, Yes Joint Pain, Yes Joint Stiffness, Yes Pain In: (foot), No Joint Swelling, No Muscle Pain, No Muscular Weakness, No Other, No Swelling In: Neurological: No Behavorial Changes, No Bowel/Bladder ControlChng, No Confusion , No Dizziness, No Gait Disturbance, No Headaches, No Impaired Coord/balance, No Memory Loss, No Numbness/Tingling, No Other, No Seizures, No Speech Problems , No Tremors, No Visual Changes, No Weakness Skin: Yes Dry Skin, No Acne, No Eczema, No Hair Changes, No Lumps, No Mole Changes, No Mottling, No Nail Changes, No Other, No Pruritus, No Rash, No Skin Lesion Changes Physical Exam General: Alert, Oriented X3, Cooperative, No acute distress HEENT: Atraumatic, PERRLA, EOMI, Mucous membr. moist/pink Lungs: Clear to auscultation, Normal air movement Heart: no gallops, no murmurs Rectal Exam: not examined Extremities: No clubbing, No edema, Normal pulses Skin: Other (erythema with central wound, he reports improved in the past few hours,) Neuro: Normal speech, Normal tone, Sensation intact Psych/Mental Status: Mental status NL, Mood NL Vitals Vitals Vital Signs Date Time Temp Pulse Resp B/P Pulse Ox O2 Delivery O2 Flow Rate FiO2 01/04/17 20:44 16 Room Air 01/04/17 20:15 98.0 80 164/102 96 98.0 Labs Labs Laboratory Tests Test 01/04/17 17:30 White Blood Count 10.4x10^3/uL (4.0-11.0) Red Blood Count 4.85x10^6/uL (4.30-5.70) Hemoglobin 12.8g/dL (13.0-17.5) Hematocrit 38.4% (39.0-53.0) Mean Corpuscular Volume 79fL (79-100) Mean Corpuscular Hemoglobin 27pg (25-35) Mean Corpuscular Hemoglobin Concent 33g/dL (31-37) Red Cell Distribution Width 15.2% (11.5-14.5) Platelet Count 411x10^3/uL (140-400) Neutrophils (%) (Auto) 68% (31-73) Lymphocytes (%) (Auto) 20% (24-48) Monocytes (%) (Auto) 9% (0-9) Eosinophils (%) (Auto) 2% (0-3) Basophils (%) (Auto) 1% (0-3) Neutrophils # (Auto) 7.1x10^3uL (1.8-7.7) Lymphocytes # (Auto) 2.1x10^3/uL (1.0-4.8) Monocytes # (Auto) 1.0x10^3/uL (0.0-1.1) Eosinophils # (Auto) 0.2x10^3/uL (0.0-0.7) Basophils # (Auto) 0.1x10^3/uL (0.0-0.2) Sodium Level 138mmol/L (136-145) Potassium Level 3.4mmol/L (3.5-5.1) Chloride Level 98mmol/L (98-107) Carbon Dioxide Level 28mmol/L (21-32) Anion Gap 12 (6-14) Blood Urea Nitrogen 9mg/dL (8-26) Creatinine 1.5mg/dL (0.7-1.3) Estimated GFR (Cockcroft-Gault) 58.8 Glucose Level 113mg/dL (70-99) Calcium Level 9.8mg/dL (8.5-10.1) Laboratory Tests Test 01/04/17 17:30 White Blood Count 10.4x10^3/uL (4.0-11.0) Red Blood Count 4.85x10^6/uL (4.30-5.70) Hemoglobin 12.8g/dL (13.0-17.5) Hematocrit 38.4% (39.0-53.0) Mean Corpuscular Volume 79fL (79-100) Mean Corpuscular Hemoglobin 27pg (25-35) Mean Corpuscular Hemoglobin Concent 33g/dL (31-37) Red Cell Distribution Width 15.2% (11.5-14.5) Platelet Count 411x10^3/uL (140-400) Neutrophils (%) (Auto) 68% (31-73) Lymphocytes (%) (Auto) 20% (24-48) Monocytes (%) (Auto) 9% (0-9) Eosinophils (%) (Auto) 2% (0-3) Basophils (%) (Auto) 1% (0-3) Neutrophils # (Auto) 7.1x10^3uL (1.8-7.7) Lymphocytes # (Auto) 2.1x10^3/uL (1.0-4.8) Monocytes # (Auto) 1.0x10^3/uL (0.0-1.1) Eosinophils # (Auto) 0.2x10^3/uL (0.0-0.7) Basophils # (Auto) 0.1x10^3/uL (0.0-0.2) Sodium Level 138mmol/L (136-145) Potassium Level 3.4mmol/L (3.5-5.1) Chloride Level 98mmol/L (98-107) Carbon Dioxide Level 28mmol/L (21-32) Anion Gap 12 (6-14) Blood Urea Nitrogen 9mg/dL (8-26) Creatinine 1.5mg/dL (0.7-1.3) Estimated GFR (Cockcroft-Gault) 58.8 Glucose Level 113mg/dL (70-99) Calcium Level 9.8mg/dL (8.5-10.1) VTE Prophylaxis Ordered VTE Prophylaxis Devices: No VTE Pharmacological Prophylaxi: Yes Assessment/Plan Assessment/Plan right foot pain, erythema and drainage from foot recent forefoot fracture with implanted hardware by Dr. Imani Rodriguez given X1, will discuss w/ ortho if to continue pain, insomnia meds hypokalemia, replace CKD 2- 3, LOREN GREEN MD Jan 04, 2017 21:59
[2017-01-04] MEDS ORDERED: OXYCODONE/APAP 5/325 TABLET. PO PRN (23:00)
[2017-01-04] MEDS ORDERED: ZOLPIDEM 5 MG TABLET. PO PRN (23:00)
[2017-01-04 23:14] VITALS: BP 165/86
[2017-01-04] MEDS: MORPHINE ER 15 MG TABLET.ER PO SCH (23:22)
[2017-01-05] MEDS: MORPHINE SULFATE 4 MG/ML DISP.SYRIN. IV PRN ×2 (01:56→08:17)
[2017-01-05 03:06] VITALS: BP 162/99
[2017-01-05 04:43] LABS: BASO % 0 % (0-3); EOS % 3 % (0-3); HEMATOCRIT 36.3 % (39.0-53.0); HEMOGLOBIN 12.1 g/dL (13.0-17.5); LYMPH # 1.6 x10^3/uL (1.0-4.8); LYMPH % 19 % (24-48); MEAN CORPUSCULAR HEMOGLOBIN 26 pg (25-35); MEAN CORPUSCULAR HGB CONC 33 g/dL (31-37); MEAN CORPUSCULAR VOLUME 78 fL (79-100); MONO % 10 % (0-9); NEUT % 68 % (31-73); PLATELET COUNT 394 x10^3/uL (140-400); RED BLOOD COUNT 4.65 x10^6/uL (4.30-5.70); WHITE BLOOD COUNT 8.7 x10^3/uL (4.0-11.0)
[2017-01-05] MEDS ORDERED: HYDROMORPHONE 2 MG/ML VIAL. IV PRN (04:45)
[2017-01-05 04:53] LABS: ALBUMIN 2.9 g/dL (3.4-5.0); ALBUMIN/GLOBULIN RATIO 0.7 (1.0-1.7); CALCIUM 9.6 mg/dL (8.5-10.1); CREATININE 1.2 mg/dL (0.7-1.3); GFR 76.1; MAGNESIUM 2.1 mg/dL (1.8-2.4); POTASSIUM 3.4 mmol/L (3.5-5.1); TOTAL BILIRUBIN 0.2 mg/dL (0.2-1.0); TOTAL PROTEIN 7.2 g/dL (6.4-8.2)
[2017-01-05] MEDS: OXYCODONE/APAP 10/325 TABLET. PO PRN ×2 (04:55→11:01)
[2017-01-05] MEDS ORDERED: CEFAZOLIN SODIUM 1 GM in IV NORMAL SALINE 50ML 50 ML IV SCH (06:00)
[2017-01-05 07:00] VITALS: BP 172/79
--- NOTE | 2017-01-05 07:18 | ACF ---
Admission Forms Criteria WOUND COMPLICATIONS Clinical Indications for Inpatient Care (Place 'X' for any and all applicable criteria): Ongoing inpatient care may be indicated for wound complications with ANY ONE of the following (1) (15): [ ]I. Infection with ANY ONE of the following(32)(33): [ ]a) Temperature greater than 38.5 C (101.3 F) [ ]b) Evidence of tissue necrosis [ ]c) Erythema diameter expanding around wound despite treatment [ ]d) Mental status changes [ ]e) Dehydration [ ]f) Bacteremia [ ]g) Hemodynamic instability [ ]h) Suspected necrotizing fasciitis [ ]i) Rapidly spreading lesions [ ]j) High-risk location (eg, perineum, sternum, orbit) [ ]k) High-risk coexisting clinical condition as indicated by ANY ONE of the following: [ ]i) Poorly controlled diabetes [ ]ii) Cirrhosis [ ]iii) Renal failure [ ]iv) Neutropenia [ ] v) Asplenia [ ]vi) Immunosuppression (eg, AIDS, chronic corticosteroid use) [ ]viii) Other high-risk medical comorbidities [ ] II. Dehiscence requiring frequent monitoring or immediate treatment [ ] III. Hematoma with ANY ONE of the following: [ ]a) Hemodynamic instability or acute anemia due to rapid development of hematoma [ ]b) Neck hematoma causing airway compression [ ]c) Retroperitoneal hematoma [ ]d) Uncontrolled coagulopathy [ ]IV. Seroma with evidence of secondary infection and requirement for IV antibiotics [D](31) [X]V. Pain that cannot be managed at lower level of care Extended stay beyond goal length of stay for primary condition may be needed until ALL of the following are present(1)(33)(34): [ ]a) Afebrile or fever resolving [ ]b) Hemodynamic stability [ ]c) Pain resolving [ ]d) Wound closed, continuity adequately restored, or wound manageable at lower level of care [ ]e) No drain needed or drain care manageable at lower level of care [ ]f) Wound hematoma or seroma resolving [ ]g) Antibiotics not needed or regimen manageable at lower level of care(38) [ ]h) Dressing care manageable at lower level of care [ ]i) Coagulopathy absent, resolved, or treatable at lower level of care [ ]j) Medical comorbidities resolved or treatable at lower level of care The original [email or web address] content created by Lambert Brandon has been revised. The portions of the content which have been revised are identified through the use of italic text or in bold, and Lambert Brandon has neither reviewed nor approved the modified material. All other unmodified content is copyright Lambert Brandon. Please see references footnoted in the original [facility] edition 2016 Admission Criteria Met?: Yes AURORA KATE Jan 05, 2017 07:18
--- NOTE | 2017-01-05 08:14 | RAD ---
Right foot, 3 views, 06/06/2017: History: Foot pain and swelling, postop Comparison is made to a study from 12/02/2016. There are surgical pins now in place running through the phalanges of the second through fifth toes extending into the distal metatarsals. The previously seen dislocation at the second MTP joint has been reduced. The previously seen fracture dislocations at the third and fourth MTP levels have also been reduced. At the fifth MTP joint level there is a moderate sized metatarsal head fracture fragment which is not traversed by the surgical pin. There is a nondisplaced fracture of the proximal second metatarsal which is unchanged. The previously seen seen fracture of the inferolateral aspect of the third portion of the cuboid bone is less clearly defined on today's images but is unchanged in position. No new fracture or dislocation is identified. There is moderate diffuse soft tissue swelling about the foot. IMPRESSION: Multiple subacute foot fractures and postsurgical changes as described above.
[2017-01-05] MEDS ORDERED: POLYETHYLENE GLYCOL 3350 17 GM PACKET. PO SCH (09:00)
[2017-01-05] MEDS ORDERED: DOCUSATE SODIUM 100 MG CAPSULE PO SCH (09:00)
--- NOTE | 2017-01-05 09:39 | PDOC ---
PROGRESS NOTES Chief Complaint Chief Complaint right foot pain, erythema and drainage from foot recent forefoot fracture with implanted hardware pain, ongoing hypokalemia, CKD 2- vasomotor on admit, improved History of Present Illness History of Present Illness severe pain overnight, pain meds increased some insomnia Vitals Vitals Vital Signs Date Time Temp Pulse Resp B/P Pulse Ox O2 Delivery O2 Flow Rate FiO2 01/05/17 07:00 96.1 68 18 172/79 99 Room Air 96.1 Physical Exam General: Alert, Oriented X3, Cooperative, mild distress Heart: Regular rate, No murmurs Lungs: Clear Extremities: No clubbing, No edema, Normal pulses Skin: Other (erythema with central wound, he reports improved - but still very painful) Labs LABS Laboratory Tests Test 01/04/17 17:30 01/05/17 03:40 White Blood Count 10.4x10^3/uL (4.0-11.0) 8.7x10^3/uL (4.0-11.0) Red Blood Count 4.85x10^6/uL (4.30-5.70) 4.65x10^6/uL (4.30-5.70) Hemoglobin 12.8g/dL (13.0-17.5) 12.1g/dL (13.0-17.5) Hematocrit 38.4% (39.0-53.0) 36.3% (39.0-53.0) Mean Corpuscular Volume 79fL (79-100) 78fL (79-100) Mean Corpuscular Hemoglobin 27pg (25-35) 26pg (25-35) Mean Corpuscular Hemoglobin Concent 33g/dL (31-37) 33g/dL (31-37) Red Cell Distribution Width 15.2% (11.5-14.5) 15.0% (11.5-14.5) Platelet Count 411x10^3/uL (140-400) 394x10^3/uL (140-400) Neutrophils (%) (Auto) 68% (31-73) 68% (31-73) Lymphocytes (%) (Auto) 20% (24-48) 19% (24-48) Monocytes (%) (Auto) 9% (0-9) 10% (0-9) Eosinophils (%) (Auto) 2% (0-3) 3% (0-3) Basophils (%) (Auto) 1% (0-3) 0% (0-3) Neutrophils # (Auto) 7.1x10^3uL (1.8-7.7) 5.9x10^3uL (1.8-7.7) Lymphocytes # (Auto) 2.1x10^3/uL (1.0-4.8) 1.6x10^3/uL (1.0-4.8) Monocytes # (Auto) 1.0x10^3/uL (0.0-1.1) 0.9x10^3/uL (0.0-1.1) Eosinophils # (Auto) 0.2x10^3/uL (0.0-0.7) 0.2x10^3/uL (0.0-0.7) Basophils # (Auto) 0.1x10^3/uL (0.0-0.2) 0.0x10^3/uL (0.0-0.2) Sodium Level 138mmol/L (136-145) 139mmol/L (136-145) Potassium Level 3.4mmol/L (3.5-5.1) 3.4mmol/L (3.5-5.1) Chloride Level 98mmol/L (98-107) 99mmol/L (98-107) Carbon Dioxide Level 28mmol/L (21-32) 31mmol/L (21-32) Anion Gap 12 (6-14) 9 (6-14) Blood Urea Nitrogen 9mg/dL (8-26) 9mg/dL (8-26) Creatinine 1.5mg/dL (0.7-1.3) 1.2mg/dL (0.7-1.3) Estimated GFR (Cockcroft-Gault) 58.8 76.1 Glucose Level 113mg/dL (70-99) 98mg/dL (70-99) Calcium Level 9.8mg/dL (8.5-10.1) 9.6mg/dL (8.5-10.1) BUN/Creatinine Ratio 8 (6-20) Magnesium Level 2.1mg/dL (1.8-2.4) Total Bilirubin 0.2mg/dL (0.2-1.0) Aspartate Amino Transf (AST/SGOT) 11U/L (15-37) Alanine Aminotransferase (ALT/SGPT) 15U/L (16-63) Alkaline Phosphatase 93U/L (46-116) Total Protein 7.2g/dL (6.4-8.2) Albumin 2.9g/dL (3.4-5.0) Albumin/Globulin Ratio 0.7 (1.0-1.7) Assessment and Plan Assessmemt and Plan Problems Medical Problems: (1) Postoperative wound infection Status: Acute Problems: Comment Review of Relevant I have reviewed the following items rogerio (where applicable) has been applied. Labs Laboratory Tests Test 01/04/17 17:30 01/05/17 03:40 White Blood Count 10.4x10^3/uL (4.0-11.0) 8.7x10^3/uL (4.0-11.0) Red Blood Count 4.85x10^6/uL (4.30-5.70) 4.65x10^6/uL (4.30-5.70) Hemoglobin 12.8g/dL (13.0-17.5) 12.1g/dL (13.0-17.5) Hematocrit 38.4% (39.0-53.0) 36.3% (39.0-53.0) Mean Corpuscular Volume 79fL (79-100) 78fL (79-100) Mean Corpuscular Hemoglobin 27pg (25-35) 26pg (25-35) Mean Corpuscular Hemoglobin Concent 33g/dL (31-37) 33g/dL (31-37) Red Cell Distribution Width 15.2% (11.5-14.5) 15.0% (11.5-14.5) Platelet Count 411x10^3/uL (140-400) 394x10^3/uL (140-400) Neutrophils (%) (Auto) 68% (31-73) 68% (31-73) Lymphocytes (%) (Auto) 20% (24-48) 19% (24-48) Monocytes (%) (Auto) 9% (0-9) 10% (0-9) Eosinophils (%) (Auto) 2% (0-3) 3% (0-3) Basophils (%) (Auto) 1% (0-3) 0% (0-3) Neutrophils # (Auto) 7.1x10^3uL (1.8-7.7) 5.9x10^3uL (1.8-7.7) Lymphocytes # (Auto) 2.1x10^3/uL (1.0-4.8) 1.6x10^3/uL (1.0-4.8) Monocytes # (Auto) 1.0x10^3/uL (0.0-1.1) 0.9x10^3/uL (0.0-1.1) Eosinophils # (Auto) 0.2x10^3/uL (0.0-0.7) 0.2x10^3/uL (0.0-0.7) Basophils # (Auto) 0.1x10^3/uL (0.0-0.2) 0.0x10^3/uL (0.0-0.2) Sodium Level 138mmol/L (136-145) 139mmol/L (136-145) Potassium Level 3.4mmol/L (3.5-5.1) 3.4mmol/L (3.5-5.1) Chloride Level 98mmol/L (98-107) 99mmol/L (98-107) Carbon Dioxide Level 28mmol/L (21-32) 31mmol/L (21-32) Anion Gap 12 (6-14) 9 (6-14) Blood Urea Nitrogen 9mg/dL (8-26) 9mg/dL (8-26) Creatinine 1.5mg/dL (0.7-1.3) 1.2mg/dL (0.7-1.3) Estimated GFR (Cockcroft-Gault) 58.8 76.1 Glucose Level 113mg/dL (70-99) 98mg/dL (70-99) Calcium Level 9.8mg/dL (8.5-10.1) 9.6mg/dL (8.5-10.1) BUN/Creatinine Ratio 8 (6-20) Magnesium Level 2.1mg/dL (1.8-2.4) Total Bilirubin 0.2mg/dL (0.2-1.0) Aspartate Amino Transf (AST/SGOT) 11U/L (15-37) Alanine Aminotransferase (ALT/SGPT) 15U/L (16-63) Alkaline Phosphatase 93U/L (46-116) Total Protein 7.2g/dL (6.4-8.2) Albumin 2.9g/dL (3.4-5.0) Albumin/Globulin Ratio 0.7 (1.0-1.7) Laboratory Tests Test 01/04/17 17:30 01/05/17 03:40 White Blood Count 10.4x10^3/uL (4.0-11.0) 8.7x10^3/uL (4.0-11.0) Red Blood Count 4.85x10^6/uL (4.30-5.70) 4.65x10^6/uL (4.30-5.70) Hemoglobin 12.8g/dL (13.0-17.5) 12.1g/dL (13.0-17.5) Hematocrit 38.4% (39.0-53.0) 36.3% (39.0-53.0) Mean Corpuscular Volume 79fL (79-100) 78fL (79-100) Mean Corpuscular Hemoglobin 27pg (25-35) 26pg (25-35) Mean Corpuscular Hemoglobin Concent 33g/dL (31-37) 33g/dL (31-37) Red Cell Distribution Width 15.2% (11.5-14.5) 15.0% (11.5-14.5) Platelet Count 411x10^3/uL (140-400) 394x10^3/uL (140-400) Neutrophils (%) (Auto) 68% (31-73) 68% (31-73) Lymphocytes (%) (Auto) 20% (24-48) 19% (24-48) Monocytes (%) (Auto) 9% (0-9) 10% (0-9) Eosinophils (%) (Auto) 2% (0-3) 3% (0-3) Basophils (%) (Auto) 1% (0-3) 0% (0-3) Neutrophils # (Auto) 7.1x10^3uL (1.8-7.7) 5.9x10^3uL (1.8-7.7) Lymphocytes # (Auto) 2.1x10^3/uL (1.0-4.8) 1.6x10^3/uL (1.0-4.8) Monocytes # (Auto) 1.0x10^3/uL (0.0-1.1) 0.9x10^3/uL (0.0-1.1) Eosinophils # (Auto) 0.2x10^3/uL (0.0-0.7) 0.2x10^3/uL (0.0-0.7) Basophils # (Auto) 0.1x10^3/uL (0.0-0.2) 0.0x10^3/uL (0.0-0.2) Sodium Level 138mmol/L (136-145) 139mmol/L (136-145) Potassium Level 3.4mmol/L (3.5-5.1) 3.4mmol/L (3.5-5.1) Chloride Level 98mmol/L (98-107) 99mmol/L (98-107) Carbon Dioxide Level 28mmol/L (21-32) 31mmol/L (21-32) Anion Gap 12 (6-14) 9 (6-14) Blood Urea Nitrogen 9mg/dL (8-26) 9mg/dL (8-26) Creatinine 1.5mg/dL (0.7-1.3) 1.2mg/dL (0.7-1.3) Estimated GFR (Cockcroft-Gault) 58.8 76.1 Glucose Level 113mg/dL (70-99) 98mg/dL (70-99) Calcium Level 9.8mg/dL (8.5-10.1) 9.6mg/dL (8.5-10.1) BUN/Creatinine Ratio 8 (6-20) Magnesium Level 2.1mg/dL (1.8-2.4) Total Bilirubin 0.2mg/dL (0.2-1.0) Aspartate Amino Transf (AST/SGOT) 11U/L (15-37) Alanine Aminotransferase (ALT/SGPT) 15U/L (16-63) Alkaline Phosphatase 93U/L (46-116) Total Protein 7.2g/dL (6.4-8.2) Albumin 2.9g/dL (3.4-5.0) Albumin/Globulin Ratio 0.7 (1.0-1.7) Medications Current Medications Morphine Sulfate 4 mg PRN Q15MIN PRN IV/SQ PAIN GREATER THAN 3/10 Last administered on 01/04/17 17:46; Start 01/04/17 at 17:45; Stop 01/05/17 at 17:44 Ondansetron HCl 4 mg 4 mg 1X ONCE IV Last administered on 01/04/17 17:46; Start 01/04/17 at 17:45; Stop 01/04/17 at 17:46; Status DC Cefazolin Sodium/ Dextrose (Ancef 2gm Premix) 50 ml @ 100 mls/hr 1X ONCE IV Last administered on 01/04/17 18:42; Start 01/04/17 at 18:30; Stop 01/04/17 at 18:59; Status DC Ondansetron HCl (Zofran) 4 mg PRN Q8HRS PRN IV NAUSEA/VOMITING Last administered on 01/05/17 08:09; Start 01/04/17 at 19:45; Stop 01/05/17 at 19:44 Morphine Sulfate 4 mg PRN Q2HR PRN IV PAIN Last administered on 01/05/17 08:17 ; Start 01/04/17 at 19:45; Stop 01/05/17 at 19:44 Acetaminophen (Tylenol) 650 mg PRN Q4HRS PRN PO FEVER; Start 01/04/17 at 19:45 ; Stop 01/05/17 at 19:44 Potassium Chloride 40 meq 40 meq 1X ONCE PO Last administered on 01/04/17 22: 20; Start 01/04/17 at 21:15; Stop 01/04/17 at 21:16; Status DC Cefazolin Sodium/ Sodium Chloride (Ancef/Iv Sodium Chloride 0.9% 50ml) 50 ml @ 100 mls/hr Q8HRS IV Last administered on 01/05/17 05:33; Start 01/05/17 at 06: 00 Morphine Sulfate (Ms Contin) 15 mg BID PO Last administered on 01/04/17 23:22 ; Start 01/04/17 at 23:00 Oxycodone/ Acetaminophen (Percocet 5/325) 1 tab PRN Q4HRS PRN PO SEVERE PAIN Last administered on 01/05/17 01:50; Start 01/04/17 at 23:00 Zolpidem Tartrate (Ambien) 5 mg PRN QHS PRN PO INSOMNIA, MAY REPEAT IN 1HR Last administered on 01/04/17 23:22; Start 01/04/17 at 23:00 Polyethylene Glycol (miraLAX PACKET) 17 gm DAILY PO ; Start 01/05/17 at 09:00 Docusate Sodium (Colace) 100 mg DAILY PO ; Start 01/05/17 at 09:00 Hydromorphone HCl (Dilaudid) 1 mg PRN Q2HRS PRN IV SEVERE PAIN; Start 01/05/17 at 04:45 Oxycodone/ Acetaminophen (Percocet 10/325) 1 tab PRN Q4HRS PRN PO SEVERE PAIN Last administered on 01/05/17 04:55; Start 01/05/17 at 04:45 Active Scripts Active Aspirin 325 Mg Tablet 325 Mg PO DAILYWBKFT Clonidine Hcl 0.1 Mg Tablet 0.1 Mg PO BID 30 Days Lisinopril 20 Mg Tablet 1 Tab PO DAILY Norvasc (Amlodipine Besylate) 5 Mg Tablet 1 Tab PO DAILY Lovastatin 20 Mg Tablet 1 Tab PO DAILY Dyazide 37.5-25 Capsule (Triamterene/Hydrochlorothiazid) 1 Each Capsule 1 Cap PO DAILY Vitals/I & O Vital Sign - Last 24 Hours 01/04/17 01/04/17 01/04/17 01/04/17 17:14 17:43 17:46 18:49 Temp 97.3 97.3 Pulse 100 80 73 Resp 22 16 18 B/P 138/92 182/99 166/93 Pulse Ox 99 98 97 99 O2 Delivery Room Air Room Air Room Air Room Air 01/04/17 01/04/17 01/04/17 01/04/17 19:17 19:47 20:15 20:15 Temp 98.0 98.0 98.0 98.0 Pulse 70 74 80 80 Resp 18 18 B/P 174/104 170/84 164/102 164/102 Pulse Ox 97 98 96 96 O2 Delivery Room Air Room Air Room Air Room Air 01/04/17 01/04/17 01/04/17 01/04/17 20:20 20:30 20:44 23:14 Temp 98.2 98.2 Pulse 77 Resp 16 16 18 B/P 165/86 Pulse Ox 95 O2 Delivery Room Air Room Air Room Air Room Air 01/04/17 01/04/17 01/05/17 01/05/17 23:22 23:24 01:50 01:56 Resp 16 16 16 16 O2 Delivery Room Air Room Air Room Air Room Air 01/05/17 01/05/17 01/05/17 01/05/17 02:30 02:50 03:06 03:22 Temp 98.2 98.2 Pulse 76 Resp 16 16 18 16 B/P 162/99 Pulse Ox 96 O2 Delivery Room Air Room Air Room Air Room Air 01/05/17 01/05/17 01/05/17 04:55 05:59 07:00 Temp 96.1 96.1 Pulse 68 Resp 18 B/P 172/79 Pulse Ox 99 O2 Delivery Room Air Room Air Room Air Intake and Output 01/04/17 01/04/17 01/05/17 15:00 23:00 07:00 Intake Total 50 ml 850 ml Output Total 350 ml Balance 50 ml 500 ml LOREN GREEN MD Jan 05, 2017 09:39
[2017-01-05] MEDS: MORPHINE ER 15 MG TABLET.ER PO SCH (09:50)
[2017-01-05 09:58] LABS: % SAT IRON 10 % (15-34); IRON,SERUM 21 ug/dL (65-175)
[2017-01-05] MEDS ORDERED: MAGNESIUM SULFATE 2GM 50 ML IV ONE (10:30)
[2017-01-05] MEDS ORDERED: POTASSIUM CHLORIDE 20 MEQ TABLET.ER. PO ONE (10:30)
[2017-01-05 11:00] VITALS: BP 166/88
--- NOTE | 2017-01-05 12:18 | PDOC2 ---
CONSULT Date of Consult Date of Consult DATE: 01/05/17 Reason for Consult Reason for Consult: right foot pain and swelling with recent surgery Referring Physician Referring Physician: Dr. Ortiz Identification/Chief Complaint Chief Complaint right foot pain Source Source: Chart review, Patient History of Present Illness Reason for Visit: Mr. Eagle is a 56 year old male patient with a history of multiple open foot fractures and dislocations which were treated surgically by Dr. Diallo on . He has k-wires remaining in the second through fifth toes. He presented to the ED yesterday with increased pain and swelling. He says he was out of his narcotic pain medication and was taking over the counter medication, which was not controlling his pain. He states he had a tiny amount of pink drainage from the dorsal foot wound the past couple of days. He denies fever, chills, or any feelings of being ill. He has been doing pin care daily, as instructed. He states he is feeling much better today and the redness in his foot has improved. Past Medical History Cardiovascular: HTN Pulmonary: No pertinent hx CENTRAL NERVOUS SYSTEM: Other GI: No pertinent hx Heme/Onc: No pertinent hx Hepatobiliary: No pertinent hx Psych: No pertinent hx Musculoskeletal: Other Infectious disease: No pertinent hx Renal/: No pertinent hx Endocrine: No pertinent hx Past Surgical History Past Surgical History: Other (Right foot multiple fractures and dislocations ) Family History Family History: Coronary Artery Disease Social History No ALCOHOL: occassional Drugs: None Lives: with Family Current Problem List Problem List Problems Medical Problems: (1) Postoperative wound infection Status: Acute Current Medications Current Medications Current Medications Morphine Sulfate 4 mg PRN Q15MIN PRN IV/SQ PAIN GREATER THAN 3/10 Last administered on 01/04/17 17:46; Start 01/04/17 at 17:45; Stop 01/05/17 at 17:44 Ondansetron HCl 4 mg 4 mg 1X ONCE IV Last administered on 01/04/17 17:46; Start 01/04/17 at 17:45; Stop 01/04/17 at 17:46; Status DC Cefazolin Sodium/ Dextrose (Ancef 2gm Premix) 50 ml @ 100 mls/hr 1X ONCE IV Last administered on 01/04/17 18:42; Start 01/04/17 at 18:30; Stop 01/04/17 at 18:59; Status DC Ondansetron HCl (Zofran) 4 mg PRN Q8HRS PRN IV NAUSEA/VOMITING Last administered on 01/05/17 08:09; Start 01/04/17 at 19:45; Stop 01/05/17 at 19:44 Morphine Sulfate 4 mg PRN Q2HR PRN IV PAIN Last administered on 01/05/17 08:17 ; Start 01/04/17 at 19:45; Stop 01/05/17 at 19:44 Acetaminophen (Tylenol) 650 mg PRN Q4HRS PRN PO FEVER; Start 01/04/17 at 19:45 ; Stop 01/05/17 at 19:44 Potassium Chloride 40 meq 40 meq 1X ONCE PO Last administered on 01/04/17 22: 20; Start 01/04/17 at 21:15; Stop 01/04/17 at 21:16; Status DC Cefazolin Sodium/ Sodium Chloride (Ancef/Iv Sodium Chloride 0.9% 50ml) 50 ml @ 100 mls/hr Q8HRS IV Last administered on 01/05/17 05:33; Start 01/05/17 at 06: 00 Morphine Sulfate (Ms Contin) 15 mg BID PO Last administered on 01/05/17 09:50 ; Start 01/04/17 at 23:00 Oxycodone/ Acetaminophen (Percocet 5/325) 1 tab PRN Q4HRS PRN PO SEVERE PAIN Last administered on 01/05/17 01:50; Start 01/04/17 at 23:00 Zolpidem Tartrate (Ambien) 5 mg PRN QHS PRN PO INSOMNIA, MAY REPEAT IN 1HR Last administered on 01/04/17 23:22; Start 01/04/17 at 23:00 Polyethylene Glycol (miraLAX PACKET) 17 gm DAILY PO ; Start 01/05/17 at 09:00 Docusate Sodium (Colace) 100 mg DAILY PO Last administered on 01/05/17 09:50; Start 01/05/17 at 09:00 Hydromorphone HCl (Dilaudid) 1 mg PRN Q2HRS PRN IV SEVERE PAIN; Start 01/05/17 at 04:45 Oxycodone/ Acetaminophen 1 tab 1 tab PRN Q4HRS PRN PO SEVERE PAIN Last administered on 01/05/17 11:01; Start 01/05/17 at 04:45 Magnesium Sulfate/ Dextrose (Magnesium Sulfate PREMIX 2GM) 50 ml @ 25 mls/hr 1X ONCE IV Last administered on 01/05/17 11:00; Start 01/05/17 at 10:30; Stop 01/05/17 at 12:29 Potassium Chloride (Klor-Con) 40 meq 1X ONCE PO Last administered on 11:00; Start 01/05/17 at 10:30; Stop 01/05/17 at 10:31; Status DC Active Scripts Active Aspirin 325 Mg Tablet 325 Mg PO DAILYWBKFT Clonidine Hcl 0.1 Mg Tablet 0.1 Mg PO BID 30 Days Lisinopril 20 Mg Tablet 1 Tab PO DAILY Norvasc (Amlodipine Besylate) 5 Mg Tablet 1 Tab PO DAILY Lovastatin 20 Mg Tablet 1 Tab PO DAILY Dyazide 37.5-25 Capsule (Triamterene/Hydrochlorothiazid) 1 Each Capsule 1 Cap PO DAILY Allergies Allergies: Coded Allergies: No Known Drug Allergies (Unverified , 09/05/15) Physical Exam General: Alert, Oriented X3, Cooperative, No acute distress HEENT: Atraumatic, EOMI Lungs: Normal air movement Heart: Regular rate Abdomen: Soft Extremities: No clubbing, No cyanosis, Normal pulses Skin: Other (The traumatic wound over the dorsal aspect of the foot has eschar with granulation tissue surrounding it. No drainage. ) Neuro: Normal speech, Sensation intact Psych/Mental Status: Mental status NL, Mood NL MUSCULOSKELETAL: Other (There are k-wires intact in the 2nd - 5th toes. The pin sites are clean with no drainage or erythema, or any evidence of infection. There is dry, flaky skin on the toes and bottom of the foot. There is no appreciable erythema on the dorsal aspect of the foot. The wound on the dorsal foot has eschar with granulation tissue surrounding it. No drainage. There is diffuse swelling from the toes to the midfoot that appears unchanged. He is able to actively dosriflex and plantarflex at ankle, without pain. Calf soft and nontender, with negative Tania's sign. Light touch sensation intact at foot and at 1st through 4th toes. Light touch sensation is diminished in the 5th toe. Dorsalis pedis pulse intact and regular.) Vitals VITALS Vital Signs Date Time Temp Pulse Resp B/P Pulse Ox O2 Delivery O2 Flow Rate FiO2 01/05/17 07:00 96.1 68 18 172/79 99 Room Air 96.1 Labs Labs Laboratory Tests Test 01/04/17 17:30 01/05/17 03:40 White Blood Count 10.4x10^3/uL (4.0-11.0) 8.7x10^3/uL (4.0-11.0) Red Blood Count 4.85x10^6/uL (4.30-5.70) 4.65x10^6/uL (4.30-5.70) Hemoglobin 12.8g/dL (13.0-17.5) 12.1g/dL (13.0-17.5) Hematocrit 38.4% (39.0-53.0) 36.3% (39.0-53.0) Mean Corpuscular Volume 79fL (79-100) 78fL (79-100) Mean Corpuscular Hemoglobin 27pg (25-35) 26pg (25-35) Mean Corpuscular Hemoglobin Concent 33g/dL (31-37) 33g/dL (31-37) Red Cell Distribution Width 15.2% (11.5-14.5) 15.0% (11.5-14.5) Platelet Count 411x10^3/uL (140-400) 394x10^3/uL (140-400) Neutrophils (%) (Auto) 68% (31-73) 68% (31-73) Lymphocytes (%) (Auto) 20% (24-48) 19% (24-48) Monocytes (%) (Auto) 9% (0-9) 10% (0-9) Eosinophils (%) (Auto) 2% (0-3) 3% (0-3) Basophils (%) (Auto) 1% (0-3) 0% (0-3) Neutrophils # (Auto) 7.1x10^3uL (1.8-7.7) 5.9x10^3uL (1.8-7.7) Lymphocytes # (Auto) 2.1x10^3/uL (1.0-4.8) 1.6x10^3/uL (1.0-4.8) Monocytes # (Auto) 1.0x10^3/uL (0.0-1.1) 0.9x10^3/uL (0.0-1.1) Eosinophils # (Auto) 0.2x10^3/uL (0.0-0.7) 0.2x10^3/uL (0.0-0.7) Basophils # (Auto) 0.1x10^3/uL (0.0-0.2) 0.0x10^3/uL (0.0-0.2) Sodium Level 138mmol/L (136-145) 139mmol/L (136-145) Potassium Level 3.4mmol/L (3.5-5.1) 3.4mmol/L (3.5-5.1) Chloride Level 98mmol/L (98-107) 99mmol/L (98-107) Carbon Dioxide Level 28mmol/L (21-32) 31mmol/L (21-32) Anion Gap 12 (6-14) 9 (6-14) Blood Urea Nitrogen 9mg/dL (8-26) 9mg/dL (8-26) Creatinine 1.5mg/dL (0.7-1.3) 1.2mg/dL (0.7-1.3) Estimated GFR (Cockcroft-Gault) 58.8 76.1 Glucose Level 113mg/dL (70-99) 98mg/dL (70-99) Calcium Level 9.8mg/dL (8.5-10.1) 9.6mg/dL (8.5-10.1) BUN/Creatinine Ratio 8 (6-20) Magnesium Level 2.1mg/dL (1.8-2.4) Iron Level 21ug/dL (65-175) Total Iron Binding Capacity 202ug/dL (250-450) Iron Saturation 10% (15-34) Total Bilirubin 0.2mg/dL (0.2-1.0) Aspartate Amino Transf (AST/SGOT) 11U/L (15-37) Alanine Aminotransferase (ALT/SGPT) 15U/L (16-63) Alkaline Phosphatase 93U/L (46-116) Total Protein 7.2g/dL (6.4-8.2) Albumin 2.9g/dL (3.4-5.0) Albumin/Globulin Ratio 0.7 (1.0-1.7) Laboratory Tests Test 01/04/17 17:30 01/05/17 03:40 White Blood Count 10.4x10^3/uL (4.0-11.0) 8.7x10^3/uL (4.0-11.0) Red Blood Count 4.85x10^6/uL (4.30-5.70) 4.65x10^6/uL (4.30-5.70) Hemoglobin 12.8g/dL (13.0-17.5) 12.1g/dL (13.0-17.5) Hematocrit 38.4% (39.0-53.0) 36.3% (39.0-53.0) Mean Corpuscular Volume 79fL (79-100) 78fL (79-100) Mean Corpuscular Hemoglobin 27pg (25-35) 26pg (25-35) Mean Corpuscular Hemoglobin Concent 33g/dL (31-37) 33g/dL (31-37) Red Cell Distribution Width 15.2% (11.5-14.5) 15.0% (11.5-14.5) Platelet Count 411x10^3/uL (140-400) 394x10^3/uL (140-400) Neutrophils (%) (Auto) 68% (31-73) 68% (31-73) Lymphocytes (%) (Auto) 20% (24-48) 19% (24-48) Monocytes (%) (Auto) 9% (0-9) 10% (0-9) Eosinophils (%) (Auto) 2% (0-3) 3% (0-3) Basophils (%) (Auto) 1% (0-3) 0% (0-3) Neutrophils # (Auto) 7.1x10^3uL (1.8-7.7) 5.9x10^3uL (1.8-7.7) Lymphocytes # (Auto) 2.1x10^3/uL (1.0-4.8) 1.6x10^3/uL (1.0-4.8) Monocytes # (Auto) 1.0x10^3/uL (0.0-1.1) 0.9x10^3/uL (0.0-1.1) Eosinophils # (Auto) 0.2x10^3/uL (0.0-0.7) 0.2x10^3/uL (0.0-0.7) Basophils # (Auto) 0.1x10^3/uL (0.0-0.2) 0.0x10^3/uL (0.0-0.2) Sodium Level 138mmol/L (136-145) 139mmol/L (136-145) Potassium Level 3.4mmol/L (3.5-5.1) 3.4mmol/L (3.5-5.1) Chloride Level 98mmol/L (98-107) 99mmol/L (98-107) Carbon Dioxide Level 28mmol/L (21-32) 31mmol/L (21-32) Anion Gap 12 (6-14) 9 (6-14) Blood Urea Nitrogen 9mg/dL (8-26) 9mg/dL (8-26) Creatinine 1.5mg/dL (0.7-1.3) 1.2mg/dL (0.7-1.3) Estimated GFR (Cockcroft-Gault) 58.8 76.1 Glucose Level 113mg/dL (70-99) 98mg/dL (70-99) Calcium Level 9.8mg/dL (8.5-10.1) 9.6mg/dL (8.5-10.1) BUN/Creatinine Ratio 8 (6-20) Magnesium Level 2.1mg/dL (1.8-2.4) Iron Level 21ug/dL (65-175) Total Iron Binding Capacity 202ug/dL (250-450) Iron Saturation 10% (15-34) Total Bilirubin 0.2mg/dL (0.2-1.0) Aspartate Amino Transf (AST/SGOT) 11U/L (15-37) Alanine Aminotransferase (ALT/SGPT) 15U/L (16-63) Alkaline Phosphatase 93U/L (46-116) Total Protein 7.2g/dL (6.4-8.2) Albumin 2.9g/dL (3.4-5.0) Albumin/Globulin Ratio 0.7 (1.0-1.7) Images Images X-rays of the right foot were reviewed. The multiple foot fractures are seen and are essentially unchanged from postoperative x-rays taken in our office. K- wires remain intact in the second through fifth toes. No new fracture is seen. Diffuse soft tissue swelling. Assessment/Plan Assessment/Plan The dorsal foot wound appears to be healing with no active drainage and the pin sites are clean with no evidence of infection. After speaking with the patient further, it sounds like he presented to the ED primarily for pain control. Wound care and pin care was again discussed with the patient. I would like for him to rest as much as he can, with his foot elevated. Weightbearing only with the CAM walker in place. From our standpoint, he may be discharged home today. We will send him home on Keflex prophylactically and Percocet for pain. He has a followup appointment with Dr. Diallo on 01/13/17 for k-wire removal and wound check. ABIMAEL MARIE Jan 05, 2017 12:18
[2017-01-05] MEDS ORDERED: OXYC-250 PO (12:52)
[2017-01-05] MEDS ORDERED: DIAZ5TAB PO (12:52)
--- NOTE | 2017-01-05 13:11 | PDOC3 ---
Discharge Summary Visit Information Date of Admission: Jan 04, 2017 Date of Discharge: Jan 05, 2017 Admitting Diagnosis: foot pain, swelling Final Diagnosis right foot pain, erythema and drainage from foot recent forefoot fracture with implanted hardware pain, ongoing hypokalemia, CKD 2- vasomotor on admit, improved insomnia mild/mod malnutrition microcytosis without much anemia, iron studies consistent with acute illness, needs rechecked when healthy Problems Medical Problems: (1) Postoperative wound infection Status: Acute Brief Hospital Course Allergies Allergies Coded Allergies Type Severity Reaction Last Updated Verified No Known Drug Allergies 09/05/15 No Vital Signs Vital Signs Date Time Temp Pulse Resp B/P Pulse Ox O2 Delivery O2 Flow Rate FiO2 01/05/17 11:00 97.9 59 18 166/88 98 Room Air 97.9 Lab Results Laboratory Tests Test 01/04/17 17:30 01/05/17 03:40 White Blood Count 10.4x10^3/uL (4.0-11.0) 8.7x10^3/uL (4.0-11.0) Red Blood Count 4.85x10^6/uL (4.30-5.70) 4.65x10^6/uL (4.30-5.70) Hemoglobin 12.8g/dL (13.0-17.5) 12.1g/dL (13.0-17.5) Hematocrit 38.4% (39.0-53.0) 36.3% (39.0-53.0) Mean Corpuscular Volume 79fL (79-100) 78fL (79-100) Mean Corpuscular Hemoglobin 27pg (25-35) 26pg (25-35) Mean Corpuscular Hemoglobin Concent 33g/dL (31-37) 33g/dL (31-37) Red Cell Distribution Width 15.2% (11.5-14.5) 15.0% (11.5-14.5) Platelet Count 411x10^3/uL (140-400) 394x10^3/uL (140-400) Neutrophils (%) (Auto) 68% (31-73) 68% (31-73) Lymphocytes (%) (Auto) 20% (24-48) 19% (24-48) Monocytes (%) (Auto) 9% (0-9) 10% (0-9) Eosinophils (%) (Auto) 2% (0-3) 3% (0-3) Basophils (%) (Auto) 1% (0-3) 0% (0-3) Neutrophils # (Auto) 7.1x10^3uL (1.8-7.7) 5.9x10^3uL (1.8-7.7) Lymphocytes # (Auto) 2.1x10^3/uL (1.0-4.8) 1.6x10^3/uL (1.0-4.8) Monocytes # (Auto) 1.0x10^3/uL (0.0-1.1) 0.9x10^3/uL (0.0-1.1) Eosinophils # (Auto) 0.2x10^3/uL (0.0-0.7) 0.2x10^3/uL (0.0-0.7) Basophils # (Auto) 0.1x10^3/uL (0.0-0.2) 0.0x10^3/uL (0.0-0.2) Sodium Level 138mmol/L (136-145) 139mmol/L (136-145) Potassium Level 3.4mmol/L (3.5-5.1) 3.4mmol/L (3.5-5.1) Chloride Level 98mmol/L (98-107) 99mmol/L (98-107) Carbon Dioxide Level 28mmol/L (21-32) 31mmol/L (21-32) Anion Gap 12 (6-14) 9 (6-14) Blood Urea Nitrogen 9mg/dL (8-26) 9mg/dL (8-26) Creatinine 1.5mg/dL (0.7-1.3) 1.2mg/dL (0.7-1.3) Estimated GFR (Cockcroft-Gault) 58.8 76.1 Glucose Level 113mg/dL (70-99) 98mg/dL (70-99) Calcium Level 9.8mg/dL (8.5-10.1) 9.6mg/dL (8.5-10.1) BUN/Creatinine Ratio 8 (6-20) Magnesium Level 2.1mg/dL (1.8-2.4) Iron Level 21ug/dL (65-175) Total Iron Binding Capacity 202ug/dL (250-450) Iron Saturation 10% (15-34) Total Bilirubin 0.2mg/dL (0.2-1.0) Aspartate Amino Transf (AST/SGOT) 11U/L (15-37) Alanine Aminotransferase (ALT/SGPT) 15U/L (16-63) Alkaline Phosphatase 93U/L (46-116) Total Protein 7.2g/dL (6.4-8.2) Albumin 2.9g/dL (3.4-5.0) Albumin/Globulin Ratio 0.7 (1.0-1.7) Laboratory Tests Test 01/04/17 17:30 01/05/17 03:40 White Blood Count 10.4x10^3/uL (4.0-11.0) 8.7x10^3/uL (4.0-11.0) Red Blood Count 4.85x10^6/uL (4.30-5.70) 4.65x10^6/uL (4.30-5.70) Hemoglobin 12.8g/dL (13.0-17.5) 12.1g/dL (13.0-17.5) Hematocrit 38.4% (39.0-53.0) 36.3% (39.0-53.0) Mean Corpuscular Volume 79fL (79-100) 78fL (79-100) Mean Corpuscular Hemoglobin 27pg (25-35) 26pg (25-35) Mean Corpuscular Hemoglobin Concent 33g/dL (31-37) 33g/dL (31-37) Red Cell Distribution Width 15.2% (11.5-14.5) 15.0% (11.5-14.5) Platelet Count 411x10^3/uL (140-400) 394x10^3/uL (140-400) Neutrophils (%) (Auto) 68% (31-73) 68% (31-73) Lymphocytes (%) (Auto) 20% (24-48) 19% (24-48) Monocytes (%) (Auto) 9% (0-9) 10% (0-9) Eosinophils (%) (Auto) 2% (0-3) 3% (0-3) Basophils (%) (Auto) 1% (0-3) 0% (0-3) Neutrophils # (Auto) 7.1x10^3uL (1.8-7.7) 5.9x10^3uL (1.8-7.7) Lymphocytes # (Auto) 2.1x10^3/uL (1.0-4.8) 1.6x10^3/uL (1.0-4.8) Monocytes # (Auto) 1.0x10^3/uL (0.0-1.1) 0.9x10^3/uL (0.0-1.1) Eosinophils # (Auto) 0.2x10^3/uL (0.0-0.7) 0.2x10^3/uL (0.0-0.7) Basophils # (Auto) 0.1x10^3/uL (0.0-0.2) 0.0x10^3/uL (0.0-0.2) Sodium Level 138mmol/L (136-145) 139mmol/L (136-145) Potassium Level 3.4mmol/L (3.5-5.1) 3.4mmol/L (3.5-5.1) Chloride Level 98mmol/L (98-107) 99mmol/L (98-107) Carbon Dioxide Level 28mmol/L (21-32) 31mmol/L (21-32) Anion Gap 12 (6-14) 9 (6-14) Blood Urea Nitrogen 9mg/dL (8-26) 9mg/dL (8-26) Creatinine 1.5mg/dL (0.7-1.3) 1.2mg/dL (0.7-1.3) Estimated GFR (Cockcroft-Gault) 58.8 76.1 Glucose Level 113mg/dL (70-99) 98mg/dL (70-99) Calcium Level 9.8mg/dL (8.5-10.1) 9.6mg/dL (8.5-10.1) BUN/Creatinine Ratio 8 (6-20) Magnesium Level 2.1mg/dL (1.8-2.4) Iron Level 21ug/dL (65-175) Total Iron Binding Capacity 202ug/dL (250-450) Iron Saturation 10% (15-34) Total Bilirubin 0.2mg/dL (0.2-1.0) Aspartate Amino Transf (AST/SGOT) 11U/L (15-37) Alanine Aminotransferase (ALT/SGPT) 15U/L (16-63) Alkaline Phosphatase 93U/L (46-116) Total Protein 7.2g/dL (6.4-8.2) Albumin 2.9g/dL (3.4-5.0) Albumin/Globulin Ratio 0.7 (1.0-1.7) Brief Hospital Course Mr. Eagle is a 56 old male patient with a history of multiple open foot fractures and dislocations which were treated surgically by Dr. Diallo on . He has k-wires remaining in the second through fifth toes. He presented to the ED with increased pain and swelling, started on ancef, redness gone and pain better felt better on day of DC Discharge Information Condition at Discharge: Improved Follow Up: Weeks Disposition/Orders: D/C to Home Scheduled Amlodipine Besylate (Norvasc) 1 TAB PO DAILY Aspirin (Aspirin) 325 MG PO DAILYWBKFT Clonidine Hcl (Clonidine Hcl) 0.1 MG PO BID Lisinopril (Lisinopril) 1 TAB PO DAILY Lovastatin (Lovastatin) 1 TAB PO DAILY Oxycodone/Apap 10-325 (Percocet 10-325 Mg Tablet) 1-2 TAB PO Q4-6HRS (Reported) Triamterene/Hydrochlorothiazid (Dyazide 37.5-25 Capsule) 1 CAP PO DAILY Scheduled PRN Diazepam (Valium) 5 MG PO PRN 1X PRN PRN ANXIETY / AGITATION (Reported) Patient Instructions Patient Instructions time .> 30 min LOREN GREEN MD Jan 05, 2017 13:11
== END 2017-01-05 13:45 | disposition home or self-care (01) | DRG 862 ==
LOC: ER 17:02 → 4 NORTH 18:26
PROVIDERS: ADMIT Internal Medicine; ATTEND Internal Medicine
DX: T81.4XXA Infection following a procedure, initial encounter (principal); N17.0 Acute kidney failure with tubular necrosis; E44.0 Moderate protein-calorie malnutrition; M79.671 Pain in right foot; E78.00 Pure hypercholesterolemia, unspecified; E87.6 Hypokalemia; G47.00 Insomnia, unspecified; I12.9 Hypertensive chronic kidney disease with stage 1 through stage 4 chronic kidney disease, or unspecified chronic kidney disease; L53.9 Erythematous condition, unspecified; N18.2 Chronic kidney disease, stage 2 (mild); Z82.49 Family history of ischemic heart disease and other diseases of the circulatory system; Z68.27 Body mass index [BMI] 27.0-27.9, adult
CPT/HCPCS: 36415; 73630; 80048; 80053; 83540; 83550; 83735; 85027; 87040; 87071; 87075; 87205; 96365; 96375; J0690; J2270; J2405; J7060; 99285-25

== ENCOUNTER 2017-01-20 21:35 | Emergency (ER) | payer SELFPAY ==
[~2017-01-20] VITALS: Ht 172.7 cm; Wt 80.7 kg
[~2017-01-20 21:35] MED LIST changes: +DIAZ5TAB PO; +OXYC-250 PO
[2017-01-20 21:46] VITALS: BP 170/104
--- NOTE | 2017-01-20 22:42 | PHYS DOC ---
Past Medical History Past Medical History: High Cholesterol, Hypertension Past Surgical History: Other Additional Past Surgical Histo: R foot fx Alcohol Use: None Drug Use: None Adult General Chief Complaint Chief Complaint: FOOT INJURY PAIN HPI HPI Patient is a 56 year old male with history of high cholesterol and hypertension who presents today for right foot pain that has been going on for couple days. Patient denies any new injuries. He states he had orthopedic hardware removed from his right foot January 14 2017 due to infection. He states since then he has had intermittent foot pain and came to the ED today to be evaluated just to make sure everything is okay. He states he has oxycodone at home that he rarely takes. Review of Systems Review of Systems Constitutional: Denies fever or chills [] Eyes: Denies change in visual acuity, redness, or eye pain [] Musculoskeletal: Right foot pain Integument: Denies rash or skin lesions [] Neurologic: Denies headache, focal weakness or sensory changes [] Endocrine: Denies polyuria or polydipsia [] Allergies Allergies Allergies Coded Allergies Type Severity Reaction Last Updated Verified No Known Drug Allergies 09/05/15 No Physical Exam Physical Exam Constitutional: Well developed, well nourished, no acute distress, non-toxic appearance. [] HENT: Normocephalic, atraumatic, bilateral external ears normal, oropharynx moist, no oral exudates, nose normal. [] Skin: Warm, dry, no erythema, no rash. [] Back: No tenderness, no CVA tenderness. [] Extremities: Right foot with no obvious deformity. There is scabbing noted on the top of the right foot where orthopedic hardware was removed. There is mild amount of soft tissue swelling around the area, with no signs or symptoms of infection. +2 right pedal pulse. Cap refill less than 2 seconds the right lower extremity. Neurologic: Alert and oriented X 3, normal motor function, normal sensory function, no focal deficits noted. [] Psychologic: Affect normal, judgement normal, mood normal. [] Current Patient Data Vital Signs Vital Signs Date Time Temp Pulse Resp B/P Pulse Ox O2 Delivery O2 Flow Rate FiO2 01/20/17 21:46 97.9 84 18 100 Room Air 97.9 EKG EKG [] Radiology/Procedures Radiology/Procedures [] Course & Med Decision Making Course & Med Decision Making Pertinent Labs and Imaging studies reviewed. (See chart for details) Patient is in the ED with a demented right foot pain after orthopedic hardware was removed on December 27, 2016 due to infection. The area does not appear infected. He has oxycodone at home. Reassured patient the area appears well. Recommended elevating the foot. Recommended taking oxycodone which he has at home. Recommended following up with orthopedic doctor. He states he has an appointment this week. Dragon Disclaimer Dragon Disclaimer This electronic medical record was generated, in whole or in part, using a voice recognition dictation system. Departure Departure Impression: Primary Impression: Foot pain, right Disposition: HOME, SELF-CARE Condition: STABLE Referrals: NO PCP (PCP) TRISHA PINO MD see him this week as scheduled Patient Instructions: Musculoskeletal Pain Additional Instructions: You were seen for right foot pain and swelling. Please take oxycodone as needed for pain which you have at home. Elevate the extremity. Apply ice to it. Come back to the ED if you have any concerning symptoms. MIRLANDE HAWTHORNE APRN Jan 20, 2017 22:42
== END 2017-01-20 22:48 | disposition home or self-care (01) ==
LOC: ER 21:35
DX: M79.671 Pain in right foot (principal); E78.00 Pure hypercholesterolemia, unspecified; I10 Essential (primary) hypertension
CPT/HCPCS: 99281

== ENCOUNTER 2017-03-16 15:17 | Emergency (ER) | payer OTHER ==
--- NOTE | 2017-03-16 16:45 | PHYS DOC ---
Past Medical History Past Medical History: High Cholesterol, Hypertension Past Surgical History: Other Additional Past Surgical Histo: R foot fx Alcohol Use: None Drug Use: None Adult General Chief Complaint Chief Complaint: FOOT INJURY PAIN HPI HPI Patient is a 56 year old male with history of hypertension high cholesterol who presents today with right foot pain and swelling. Patient states he had hardware removal from the right foot in January 2017. He states he already followed up with Dr. Diallo who discharged him. Patient states he has had increased pain and swelling after . Patient denies any trauma. Denies any fever. Review of Systems Review of Systems Constitutional: Denies fever or chills [] Eyes: Denies change in visual acuity, redness, or eye pain [] HENT: Denies nasal congestion or sore throat [] Respiratory: Denies cough or shortness of breath [] Cardiovascular: No additional information not addressed in HPI [] GI: Denies abdominal pain, nausea, vomiting, bloody stools or diarrhea [] : Denies dysuria or hematuria [] Musculoskeletal: Right foot pain and swelling. Integument: Denies rash or skin lesions [] Neurologic: Denies headache, focal weakness or sensory changes [] Endocrine: Denies polyuria or polydipsia [] Current Medications Current Medications Current Medications Medications (Trade) Dose Ordered Sig/Winston Start Time Stop Time Status Last Admin Dose Admin Clonidine HCl (Catapres) 0.3 mg 1X ONCE 03/16/17 17:00 03/16/17 17:01 Oxycodone/ Acetaminophen (Percocet 5/325) 1 tab 1X ONCE 03/16/17 17:00 03/16/17 17:01 Allergies Allergies Allergies Coded Allergies Type Severity Reaction Last Updated Verified No Known Drug Allergies 09/05/15 No Physical Exam Physical Exam Constitutional: Well developed, well nourished, no acute distress, non-toxic appearance. [] HENT: Normocephalic, atraumatic, bilateral external ears normal, oropharynx moist, no oral exudates, nose normal. [] Eyes: PERRLA, EOMI, conjunctiva normal, no discharge. [] Neck: Normal range of motion, no tenderness, supple, no stridor. [] Cardiovascular:Heart rate regular rhythm, no murmur [] Lungs & Thorax: Bilateral breath sounds clear to auscultation [] Abdomen: Bowel sounds normal, soft, no tenderness, no masses, no pulsatile masses. [] Skin: Warm, dry, no erythema, no rash. [] Back: No tenderness, no CVA tenderness. [] Extremities: Right foot with mild amount of diffuse soft tissue swelling especially on the ventral aspect. There is well healed surgical incisions noted on the right foot on the right second toe. Full range of motion to the right foot and toes. +2 right pedal pulse. Cap refill less than 2 seconds the right lower extremity. Sensation intact to the right lower extremity. Neurologic: Alert and oriented X 3, normal motor function, normal sensory function, no focal deficits noted. [] Psychologic: Affect normal, judgement normal, mood normal. [] Current Patient Data Vital Signs Vital Signs Date Time Temp Pulse Resp B/P (MAP) Pulse Ox O2 Delivery O2 Flow Rate FiO2 03/16/17 16:30 97.9 86 18 100 Room Air 97.9 EKG EKG [] Radiology/Procedures Radiology/Procedures [] Course & Med Decision Making Course & Med Decision Making Pertinent Labs and Imaging studies reviewed. (See chart for details) Patient is in the ED with right foot pain and swelling worse over the weekend. He had hardware removed from the right foot in January. Reassured patient his foot is not infected. Encouraged him to ice and elevate the foot. Elizabeth elmore recommended. His blood pressure was 232/105, this patient has history of extensive hypertension. He is supposed to take Triamterene/ HCTZ, lisinopril, amlodipine, clonidine, he has not taken these medicines for weeks. He states he ran out of his prescription and has not followed up with his own PCP. He states his BPs ran very high. He has no cardiac or neurological symptoms. He was given clonidine in the ED and discharged with prescriptions for the rest of his blood pressure medicines. We did provide him a doctor's list for follow- up. Dragon Disclaimer Dragon Disclaimer This electronic medical record was generated, in whole or in part, using a voice recognition dictation system. Departure Departure Impression: Primary Impression: Accelerated hypertension Additional Impressions: Foot pain, right Edema of right foot Disposition: HOME, SELF-CARE Condition: STABLE Referrals: NO PCP (PCP) Follow-up with a doctor from the list provided as soon as possible Patient Instructions: Hypertension Additional Instructions: You were seen for ongoing right foot pain. Ice and elevate the extremity. You can buy [id number] ELIZABETH hose and wear them they will help with swelling. Your blood pressure was elevated in the emergency room at 232/105. Normal blood pressure is 120/80. We highly recommend you establish care with a primary care doctor and follow-up as soon as possible. Scripts Clonidine Hcl (CLONIDINE HCL) 0.1 Mg Tablet 0.1 MG PO BID, #60 TAB Prov: MIRLANDE HAWTHORNE APRN 03/16/17 Lisinopril (LISINOPRIL) 20 Mg Tablet 1 TAB PO DAILY, #30 TAB 5 Refills Prov: MIRLANDE HAWTHORNE APRN 03/16/17 Amlodipine Besylate (AMLODIPINE BESYLATE) 5 Mg Tablet 5 MG PO DAILY, #30 TAB Prov: MIRLANDE HAWTHORNE APRN 03/16/17 Triamterene/Hydrochlorothiazid (TRIAMTERENE-HCTZ 37.5-25 MG CP) 1 Each Capsule 1 CAP PO DAILY, #30 CAP 5 Refills Prov: MIRLANDE HAWTHORNE APRN 03/16/17 Oxycodone/Apap 5-325 (PERCOCET 5-325 MG TABLET) 1 Each Tablet 1-2 TAB PO Q4-6HRS, #12 TAB Prov: MIRLANDE HAWTHORNE APRN 03/16/17 Problem Qualifiers MIRLANDE HAWTHORNE APRN March 16, 2017 16:45
[2017-03-16] MEDS ORDERED: TRIA1CAP3 PO (16:55)
[2017-03-16] MEDS ORDERED: LISI-334 PO (16:55)
[2017-03-16] MEDS ORDERED: AMLO5TAB2 PO (16:55)
[2017-03-16] MEDS ORDERED: CLON0.1T PO (16:55)
[2017-03-16] MEDS ORDERED: OXYC-323 PO (16:55)
[2017-03-16] MEDS ORDERED: oxyCODONE/APAP 5/325 1 TAB TABLET PO ONE (17:00)
[2017-03-16] MEDS ORDERED: cloNIDine HCL 0.1 MG TABLET PO ONE (17:00)
[2017-03-16 17:15] VITALS: BP 201/114
== END 2017-03-16 17:16 | disposition home or self-care (01) ==
LOC: ER 15:17
DX: I10 Essential (primary) hypertension (principal); M79.671 Pain in right foot; R60.9 Edema, unspecified; E78.00 Pure hypercholesterolemia, unspecified; Z87.81 Personal history of (healed) traumatic fracture; Z79.899 Other long term (current) drug therapy
CPT/HCPCS: 99283